=== PATIENT | female | born 1960 | race African-American/Black ===

== ENCOUNTER 2016-11-23 13:43 | Emergency (ER) | payer MEDICARE ==
[~2016-11-23] VITALS: Ht 167.6 cm; Wt 50.0 kg
[~2016-11-23 13:43] MED LIST: ALBU2.5I NEB; ALBU8I INH; ATEN-102 PO; IPRA17I INH; JANU50TA9 PO; LISI-357 PO; LISI-360 PO; METH5TAB4 PO; NOVORP2 SQ
[2016-11-23 13:44] VITALS: BP 170/78; PULSE 114; RESP 20; TEMP 98.2; O2SAT 98
--- NOTE | 2016-11-23 14:38 | PD ---
HPI Chief Complaint: Chest Pain Time Seen by Provider: 14:37 Travel History International Travel<30 days: No Contact w/Intl Traveler<30days: No Traveled to known affect area: No History of Present Illness HPI 56-year-old female with a history of hypertension, hyperthyroidism, diabetes, asthma, COPD presents to the emergency department for evaluation of cough and shortness of breath. The patient states that for the past 2 weeks she has had a productive cough that is worse at night. States that at night she feels a pressure in her chest. States that the symptoms are improved with nebulizer treatments. States that she is almost out of her nebulizers so she has not been using them very frequently. She states that she is also concerned that her thyroid may be acting up again because she is complaining of palpitations and weight loss. She is not on any medications because she does not follow up with a primary care provider. She continues to smoke cigarettes. Denies fever , chills, vomiting, chest pain, abdominal pain, lightheadedness or dizziness. No other complaints. PFSH Past Medical History Hx Anticoagulant Therapy: Yes (ASPIRIN 81 MG ) Arthritis: Yes (RA) Asthma: Yes Atrial Fibrillation: Yes Autoimmune Disease: No Blood Disorders: No Anxiety: No Depression: Yes Heart Rhythm Problems: No Cancer: No Cardiac Catheterization: Yes (2004) Cardiovascular Problems: Yes (CHF) High Cholesterol: Yes Chemotherapy: No Chest Pain: Yes Congestive Heart Failure: Yes COPD: Yes Cerebrovascular Accident: No Coronary Artery Disease: Yes Diabetes: Yes Diminished Hearing: No Endocrine: Yes (HYPERTHYROID) Gastrointestinal Disorders: Yes GERD: Yes Glaucoma: No Genitourinary: No Headaches: No Hepatitis: No Hiatal Hernia: No Hypertension: Yes Immune Disorder: No Implanted Vascular Access Dvce: No Kidney Stones: No Musculoskeletal: No Neurologic: No Psychiatric: Yes Reproductive: No Respiratory: Yes (ASTHMA) Immunizations Current: No Migraines: No Myocardial Infarction: Yes (1999) Pancreatitis: Yes Renal Failure: No Seizures: No Sickle Cell Disease: No Sleep Apnea: No Thyroid Disease: Yes (HYPERTHYROIDISM ) Ulcer: No PNEUMOCCOCAL Vaccine (Year): 1 Menopausal: Yes : 0 Past Surgical History Abdominal Surgery: Yes Appendectomy: No Cardiac Surgery: Yes (CARDIAC CATHETERIZATION X2) Cholecystectomy: No Ear Surgery: No Endocrine Surgery: No Eye Surgery: No Genitourinary Surgery: No Gynecologic Surgery: No Hysterectomy: No Neurologic Surgery: No Oral Surgery: Yes (UPPER FULL DENTURES) Pacemaker: No Thoracic Surgery: No Social History Alcohol Use: Yes (OCCASIONAL) Tobacco Use: Yes (1/2 PPD) Substance Use: No Allergies-Medications (Allergen,Severity, Reaction): Coded Allergies: Morphine (Verified Allergy, Severe, ANAPHYLAXIS, 11/23/16) Reported Meds & Prescriptions Reported Meds & Active Scripts Active Ventolin Hfa 18 GM Inh (Albuterol Sulfate) 90 Mcg/Act Aer 2 Puff INH Q4-6H PRN Zithromax Z-Blaine (Azithromycin) 250 Mg Dspk 250 Mg PO DIRECTED 500 MG (2 tabs) day 1, then 1 tab days 2-5. Reported Lisinopril 5 Mg Tab 5 Mg PO DAILY Review of Systems Except as stated in HPI: all other systems reviewed are Neg Physical Exam Narrative GENERAL: Well-nourished and well-developed pleasant patient in no acute distress who is nontoxic appearing. SKIN: Warm and dry. HEAD: Normocephalic and atraumatic. EYES: No injection, drainage, or hyphema noted. PERRLA. EOMI. ENT: No nasal drainage noted. Oropharynx is clear. NECK: Supple and the trachea is midline. CARDIOVASCULAR: Regular rate and rhythm. RESPIRATORY: Rhonchi at bases. Breath sounds are equal bilaterally with no accessory muscle use, wheezing, or crackles. GASTROINTESTINAL: Abdomen is soft, non-tender, and nondistended. MUSCULOSKELETAL: No obvious deformities, swelling, cyanosis, or ecchymosis is present throughout the upper and lower extremities. Patient has full range of motion without any signs of neurovascular compromise. NEUROLOGICAL: Awake, alert, and oriented. Normal speech and gait. Cranial nerves are grossly intact. Data Data Last Documented VS Vital Signs Date Time Temp Pulse Resp B/P Pulse Ox O2 Delivery O2 Flow Rate FiO2 11/23/16 13:44 98.2 114 20 170/78 98 Room Air Orders Electrocardiogram (11/23/16 ) Complete Blood Count With Diff (11/23/16 14:36) Comprehensive Metabolic Panel (11/23/16 14:36) Troponin I (11/23/16 14:36) Chest, Single Ap (11/23/16 14:36) Albuterol-Ipratropium Neb (Duoneb Neb) (11/23/16 14:45) Prednisone (Deltasone) (11/23/16 14:45) Thyroid Stimulating Hormone (11/23/16 14:36) Sodium Chlor 0.9% 1000 Ml Inj (Ns 1000 M (11/23/16 16:22) Sodium Chlor 0.9% 1000 Ml Inj (Ns 1000 M (11/23/16 16:22) Iv Access Insert/Monitor (11/23/16 16:22) Insulin Human Regular Inj (Novolin R Inj (11/23/16 16:45) Labs Laboratory Tests Test 11/23/16 14:46 White Blood Count 5.4 TH/MM3 Red Blood Count 4.70 MIL/MM3 Hemoglobin 15.1 GM/DL Hematocrit 42.7 % Mean Corpuscular Volume 90.8 FL Mean Corpuscular Hemoglobin 32.1 PG Mean Corpuscular Hemoglobin 35.3 % Concent Red Cell Distribution Width 14.0 % Platelet Count 232 TH/MM3 Mean Platelet Volume 9.9 FL Neutrophils (%) (Auto) 56.2 % Lymphocytes (%) (Auto) 33.8 % Monocytes (%) (Auto) 8.4 % Eosinophils (%) (Auto) 1.0 % Basophils (%) (Auto) 0.6 % Neutrophils # (Auto) 3.0 TH/MM3 Lymphocytes # (Auto) 1.8 TH/MM3 Monocytes # (Auto) 0.4 TH/MM3 Eosinophils # (Auto) 0.1 TH/MM3 Basophils # (Auto) 0.0 TH/MM3 CBC Comment DIFF FINAL Differential Comment Sodium Level 130 MEQ/L Potassium Level 4.2 MEQ/L Chloride Level 94 MEQ/L Carbon Dioxide Level 28.9 MEQ/L Anion Gap 7 MEQ/L Blood Urea Nitrogen 10 MG/DL Creatinine 0.75 MG/DL Estimat Glomerular Filtration 97 ML/MIN Rate Random Glucose 432 MG/DL Calcium Level 9.2 MG/DL Total Bilirubin 0.5 MG/DL Aspartate Amino Transf 11 U/L (AST/SGOT) Alanine Aminotransferase 18 U/L (ALT/SGPT) Alkaline Phosphatase 153 U/L Troponin I LESS THAN 0.02 NG/ML Total Protein 8.1 GM/DL Albumin 3.8 GM/DL Thyroid Stimulating Hormone 0.209 uIU/ML 3rd Gen [facility] Medical Decision Making Medical Screen Exam Complete: Yes Emergency Medical Condition: Yes Differential Diagnosis COPD exacerbation versus bronchitis versus pneumonia versus hyperthyroidism Narrative Course 56-year-old female presents to the emergency department for evaluation of productive cough and heart palpitations. Patient is afebrile. She is slightly tachycardic with a heart rate of 114 beats per minute. Otherwise vital signs are stable. Patient appears well overall. She does have some rhonchi at the bases. DuoNeb and prednisone 40 mg orally has been administered. Labs have been drawn and sent. EKG shows sinus rhythm with no acute ST elevations or depressions. CBC is unremarkable. CMP shows hyperglycemia with a glucose of 432, sodium 130. Troponin is less than 0.02. TSH is slightly decreased at 0.209. Patient has remained stable and without complaint while here in the emergency department. She is given 2 L of fluid and 5 units of subcutaneous insulin. This brought her blood glucose to 295. Discussed the importance of compliance with medication regimens and follow-up with a PCP. Patient verbalizes understanding and agrees to follow-up as an outpatient with the primary care. I discussed the case with my attending physician Dr. Hernandez who is aware of the patients history, physical examination findings, and treatment plan. Diagnosis Primary Impression: Acute bronchitis Qualified Code: J20.9 - Acute bronchitis, unspecified organism Additional Impressions: Hyperglycemia Medical non-compliance Referrals: Primary Care Physician Patient Instructions: Acute Bronchitis (ED), Diabetic Hyperglycemia (ED), General Instructions Additional Instructions: Monitor blood sugars regularly. Take medications as prescribed with food and a full glass of water. Follow-up with your Primary Care Physician. Return to the ED for any acute worsening of symptoms. Med/Other Pt SpecificInfo: Prescription(s) given Scripts Albuterol 18 GM Inh (Ventolin Hfa 18 GM Inh)90 Mcg/Act Aer2 Puff INH Q4-6H PRN ( SHORTNESS OF BREATH) #1 INHALER Ref 0 Prov:Lobito Hernandez MD 11/23/16 Azithromycin (Zithromax Z-Blaine)250 Mg Iopc549 Mg PO DIRECTED #1 DSPK Ref 0 500 MG (2 tabs) day 1, then 1 tab days 2-5. Prov:Lobito Hernandez MD 11/23/16 Disposition: 01 DISCHARGE HOME Condition: Stable Tracy Verdugo Nov 23, 2016 14:37
[2016-11-23] MEDS ORDERED: RESP: ALBUTEROL 2.5 MG/IPRATROPIUM 0.5 MG NEB (SCH) INH ONE (14:45)
[2016-11-23] MEDS ORDERED: predniSONE 20 MG TAB PO ONE (14:45)
[2016-11-23 15:16] LABS: BASOPHIL % 0.6 % (0.0-2.0); EOSINOPHIL # 0.1 TH/MM3 (0-0.4); HEMATOCRIT 42.7 % (35.0-46.0); HEMO FLAGS DIFF FINAL; LYMPH % 33.8 % (9.0-44.0); LYMPHOCYTE # 1.8 TH/MM3 (1.0-4.8); MEAN CELL VOLUME 90.8 FL (80.0-100.0); MEAN CORPUSCULAR HEMOGLOBIN 32.1 PG (27.0-34.0); MEAN CORPUSCULAR HGB CONC 35.3 % (32.0-36.0); MONO % 8.4 % (0.0-8.0); NEUT % 56.2 % (16.0-70.0); PLATELET COUNT 232 TH/MM3 (150-450); WHITE BLOOD COUNT 5.4 TH/MM3 (4.0-11.0)
[2016-11-23 15:50] LABS: ALKALINE PHOSPHATASE 153 U/L (45-117); ALT (GPT) 18 U/L (10-53); ANION GAP 7 MEQ/L (5-15); AST (GOT) 11 U/L (15-37); BICARBONATE 28.9 MEQ/L (21.0-32.0); BLOOD UREA NITROGEN 10 MG/DL (7-18); CHLORIDE 94 MEQ/L (98-107); GLOMERULAR FILTRATION RATE 97 ML/MIN (>89); POTASSIUM 4.2 MEQ/L (3.5-5.1); SODIUM (NA) 130 MEQ/L (136-145); TOTAL BILIRUBIN ADULT 0.5 MG/DL (0.2-1.0)
--- NOTE | 2016-11-23 15:52 | RADRPT ---
EXAM DATE/TIME: 11/23/2016 14:53 [facility] COMPARISON: CHEST SINGLE AP, July 27, 2013, 18:35. CHEST SINGLE AP, December 15, 2015, 16:38. INDICATIONS : Cough. MEDICAL HISTORY : Chronic obstructive pulmonary disease. Asthma SURGICAL HISTORY : None. ENCOUNTER: Initial ACUITY: 1 day PAIN SCORE: 4/10 LOCATION: Bilateral chest FINDINGS: Left hilar prominence is stable over several years. The heart is stable. The pulmonary vascular pat tern is normal. The lungs are clear. CONCLUSION: 1. Stable left hilar prominence. 2. No acute focal pulmonary infiltrate or pulmonary vascular congestion. Russell Holbrook MD on November 23, 2016 at 15:42 Board Certified Radiologist. This report was verified electronically.
[2016-11-23] MEDS ORDERED: SODIUM CHLOR 0.9% 1000 ML INJ 1,000 ML IV SCH ×2 (16:22)
[2016-11-23] MEDS ORDERED: INSULIN HUMAN REGULAR 1,000 UNITS/10 ML VIAL SQ ONE (16:45)
[2016-11-23] MEDS ORDERED: LISI-519 PO (16:56)
[2016-11-23] MEDS ORDERED: ZITHTAB PO (17:00)
[2016-11-23] MEDS ORDERED: VENTAER INH (17:00)
--- NOTE | 2016-11-24 17:34 | EKG ---
Date Performed: 11/23/2016 Time Performed: 14:03:22 PTAGE: 56 years EKG: Sinus rhythm POSSIBLE LEFT ATRIAL ENLARGEMENT POSSIBLE RIGHT VENTRICULAR CONDUCTION DELAY Since previous tracing, no significant change noted BORDERLINE ECG PREVIOUS TRACING : 03/28/2016 13.32 DOCTOR: David Lanza Interpretating Date/Time 11/24/2016 17:32:53
== END 2016-11-23 23:47 | disposition home or self-care (01) ==
LOC: NETRI 13:43
DX: J20.9 Acute bronchitis, unspecified (principal); E11.65 Type 2 diabetes mellitus with hyperglycemia; R00.2 Palpitations; R00.0 Tachycardia, unspecified; F17.210 Nicotine dependence, cigarettes, uncomplicated; E05.90 Thyrotoxicosis, unspecified without thyrotoxic crisis or storm; E78.00 Pure hypercholesterolemia, unspecified; F32.9 Major depressive disorder, single episode, unspecified; I48.91 Unspecified atrial fibrillation; M06.9 Rheumatoid arthritis, unspecified; Z79.82 Long term (current) use of aspirin; Z91.14 Patient's other noncompliance with medication regimen
CPT/HCPCS: 71010; 80053; 84443; 84484; 85025; 93005; 94664; 96372; 99285; J1815; J7030; J7512

== ENCOUNTER 2017-06-21 21:11 | Emergency (ER) | payer MEDICARE ==
[~2017-06-21] VITALS: Ht 170.2 cm; Wt 50.0 kg
[~2017-06-21 21:11] MED LIST changes: -ALBU2.5I NEB; -ALBU8I INH; -ATEN-102 PO; -IPRA17I INH; -JANU50TA9 PO; -LISI-357 PO; -LISI-360 PO; +LISI-519 PO; -METH5TAB4 PO; -NOVORP2 SQ; +VENTAER INH; +ZITHTAB PO
[2017-06-21 21:22] VITALS: BP 118/74; PULSE 101; RESP 18; TEMP 98.1; O2SAT 100
[2017-06-21] MEDS ORDERED: ONDANSETRON HCL 4 MG/2 ML VIAL IVP ONE (21:30)
[2017-06-21] MEDS: RESP: ALBUTEROL 2.5 MG/IPRATROPIUM 0.5 MG NEB (SCH) INH (21:41)
[2017-06-21 21:45] VITALS: O2SAT 99
--- NOTE | 2017-06-21 21:51 | PD ---
HPI Chief Complaint: Respiratory Symptoms Time Seen by Provider: 21:29 Travel History International Travel<30 days: No Contact w/Intl Traveler<30days: No Traveled to known affect area: No History of Present Illness HPI 57-year-old female arrives via EMS with complaint of shortness of breath and chest tightness that started last night. Patient has history of asthma that she is normally able to control with her inhaler nebulizer at home. Patient has used her inhaler and nebulizer multiple times today but this evening seemed no relief and decided to call EMS. Patient received 125 mg IV Solu-Medrol and a nebulizer treatment and 0.3 mg subcutaneous epi during transport to the hospital. Patient is still currently smoking half pack cigarettes a day but trying to quit. Patient is alert and oriented 4. She denies chest pain but complains of chest tightness. Patient complains of nausea, but denies any diarrhea. Patient denies any dizziness, lightheadedness, weakness. PFSH Past Medical History Hx Anticoagulant Therapy: Yes (ASPIRIN 81 MG ) Arthritis: Yes (RA) Asthma: Yes Atrial Fibrillation: Yes Autoimmune Disease: No Blood Disorders: No Anxiety: No Depression: Yes Heart Rhythm Problems: No Cancer: No Cardiac Catheterization: Yes (2004) Cardiovascular Problems: Yes (CHF) High Cholesterol: Yes Chemotherapy: No Chest Pain: Yes Congestive Heart Failure: Yes COPD: Yes Cerebrovascular Accident: No Coronary Artery Disease: Yes Diabetes: Yes Diminished Hearing: No Endocrine: Yes (HYPERTHYROID) Gastrointestinal Disorders: Yes GERD: Yes Glaucoma: No Genitourinary: No Headaches: No Hepatitis: No Hiatal Hernia: No Hypertension: Yes Immune Disorder: No Implanted Vascular Access Dvce: No Kidney Stones: No Musculoskeletal: No Neurologic: No Psychiatric: Yes Reproductive: No Respiratory: Yes (ASTHMA) Immunizations Current: No Migraines: No Myocardial Infarction: Yes (1999) Pancreatitis: Yes Renal Failure: No Seizures: No Sickle Cell Disease: No Sleep Apnea: No Thyroid Disease: Yes (HYPERTHYROIDISM ) Ulcer: No PNEUMOCCOCAL Vaccine (Year): 1 Menopausal: Yes : 0 Past Surgical History Abdominal Surgery: Yes Appendectomy: No Cardiac Surgery: Yes (CARDIAC CATHETERIZATION X2) Cholecystectomy: No Ear Surgery: No Endocrine Surgery: No Eye Surgery: No Genitourinary Surgery: No Gynecologic Surgery: No Hysterectomy: No Neurologic Surgery: No Oral Surgery: Yes (UPPER FULL DENTURES) Pacemaker: No Thoracic Surgery: No Social History Alcohol Use: Yes (OCCASIONAL) Tobacco Use: Yes (1/2 PPD) Substance Use: No Allergies-Medications (Allergen,Severity, Reaction): Coded Allergies: morphine (Unverified Allergy, Severe, ANAPHYLAXIS, 06/21/17) Reported Meds & Prescriptions Reported Meds & Active Scripts Active Ventolin Hfa 18 GM Inh (Albuterol Sulfate) 90 Mcg/Act Aer 2 Puff INH Q4-6H PRN Reported Novolin R Relion (Insulin Regular (Human)) 100 Unit/Ml Inj Lisinopril 5 Mg Tab 5 Mg PO DAILY Review of Systems Except as stated in HPI: all other systems reviewed are Neg Physical Exam Narrative GENERAL: Well nourished well developed 57-year-old female complaining of shortness of breath that started last night SKIN: Focused skin assessment warm/dry. HEAD: Atraumatic. Normocephalic. EYES: Pupils equal and round. No scleral icterus. No injection or drainage. ENT: No nasal bleeding or discharge. Mucous membranes pink and moist. NECK: Trachea midline. No JVD. CARDIOVASCULAR: Regular rate and rhythm. No murmur appreciated. RESPIRATORY: Accessory muscle use noted. Lung sounds extremely diminished. GASTROINTESTINAL: Abdomen soft, non-tender, nondistended. Hepatic and splenic margins not palpable. MUSCULOSKELETAL: No obvious deformities. No clubbing. No cyanosis. No edema. NEUROLOGICAL: Awake and alert. No obvious cranial nerve deficits. Motor grossly within normal limits. Normal speech. PSYCHIATRIC: Appropriate mood and affect; insight and judgment normal. Data Data Last Documented VS Vital Signs Date Time Temp Pulse Resp B/P (MAP) Pulse Ox O2 Delivery O2 Flow Rate FiO2 06/21/17 22:00 25 97 Room Air 2.00 06/21/17 21:27 88 06/21/17 21:22 98.1 118/74 (89) Orders Orders Electrocardiogram (06/21/17 21:26) Basic Metabolic Panel (Bmp) (06/21/17 21:26) Complete Blood Count With Diff (06/21/17 21:26) Chest, Single Ap (06/21/17 21:26) Ecg Monitoring (06/21/17 21:26) Iv Access Insert/Monitor (06/21/17 21:26) Oximetry (06/21/17 21:26) Oxygen Administration (06/21/17 21:26) Ondansetron Inj (Zofran Inj) (06/21/17 21:30) Albuterol-Ipratropium Neb (Duoneb Neb) (06/21/17 21:30) Creatine Kinase (Cpk) (06/21/17 21:30) Troponin I (06/21/17 21:30) Blood Gas Venous (Vbg) (06/21/17 22:24) Beta Hydroxybutyrate (Acetone) (06/21/17 22:24) Sodium Chlor 0.9% 1000 Ml Inj (Ns 1000 M (06/21/17 22:30) Insulin Human Regular Inj (Novolin R Inj (06/21/17 22:30) Labs Laboratory Tests Test 06/21/17 21:30 06/21/17 22:40 White Blood Count 9.1 TH/MM3 Red Blood Count 4.54 MIL/MM3 Hemoglobin 14.6 GM/DL Hematocrit 42.0 % Mean Corpuscular Volume 92.6 FL Mean Corpuscular Hemoglobin 32.1 PG Mean Corpuscular Hemoglobin Concent 34.7 % Red Cell Distribution Width 13.3 % Platelet Count 235 TH/MM3 Mean Platelet Volume 9.7 FL Neutrophils (%) (Auto) 58.6 % Lymphocytes (%) (Auto) 30.6 % Monocytes (%) (Auto) 10.1 % Eosinophils (%) (Auto) 0.3 % Basophils (%) (Auto) 0.4 % Neutrophils # (Auto) 5.3 TH/MM3 Lymphocytes # (Auto) 2.8 TH/MM3 Monocytes # (Auto) 0.9 TH/MM3 Eosinophils # (Auto) 0.0 TH/MM3 Basophils # (Auto) 0.0 TH/MM3 CBC Comment DIFF FINAL Differential Comment Blood Urea Nitrogen 18 MG/DL Creatinine 1.12 MG/DL Random Glucose 634 MG/DL Calcium Level 9.5 MG/DL Sodium Level 127 MEQ/L Potassium Level 3.6 MEQ/L Chloride Level 86 MEQ/L Carbon Dioxide Level 25.9 MEQ/L Anion Gap 15 MEQ/L Estimat Glomerular Filtration Rate 61 ML/MIN Blood Gas Puncture Site IV Blood Gas Patient Temperature 98.6 Venous Blood pH 7.33 Venous Blood Partial Pressure CO2 51 mmHg Venous Blood Partial Pressure O2 37 mmHg Venous Blood HCO3 26 mmol/L Venous Blood Oxygen Saturation 62 % Venous Blood Oxygen Content 12.3 Vol % Venous Blood Base Excess 0.9 mmol/L Oxygen Delivery Device NASAL CANNULA Blood Gas Liter Flow 2 L/M MDM Medical Decision Making Medical Screen Exam Complete: Yes Emergency Medical Condition: Yes Medical Record Reviewed: Yes Differential Diagnosis Asthma exacerbation versus COPD versus pneumonia versus URI versus ACS Narrative Course 57-year-old female presents to the emergency department with complaint of shortness of breath that started last night. She does have a history of asthma and used her nebulizer and inhaler throughout the night last night and day today without adequate relief. She decided to call EMS this evening. She was given 125 mg IV Solu-Medrol and a breathing treatment during transport to the hospital. She is still currently complaining of shortness of breath and chest tightness. EKG, BMP, CBC, chest x-ray ordered and pending. DuoNeb nebs 2 ordered and 4 mg IV Zofran ordered Chemistry came back with elevated glucose at 634. 1 L normal saline IV bolus and 10 units IV insulin ordered. VBG and beta hydroxybutyrate ordered and pending. EKG SINUS RHYTHM WITH SINUS ARRHYTHMIA, HEART RATE 85, CBC: UNREMARKABLE, BMP shows critically high glucose at 634, NA 127, CHLORIDE 86, CREATININE 1.12, GFR 61 ,, CHEST X-RAY: shows no acute disease process Troponin and CK and VBG and beta hydroxybutyrate still pending. Dr. Duron is assuming care and disposition of patient. Mariela Rebollar Jun 21, 2017 21:51
[2017-06-21 21:59] LABS: AUTOMATED NEUTROPHIL # 5.3 TH/MM3 (1.8-7.7); BASOPHIL % 0.4 % (0.0-2.0); EOSINOPHIL % 0.3 % (0.0-4.0); HEMO FLAGS DIFF FINAL; LYMPH % 30.6 % (9.0-44.0); LYMPHOCYTE # 2.8 TH/MM3 (1.0-4.8); MEAN CELL VOLUME 92.6 FL (80.0-100.0); MEAN CORPUSCULAR HEMOGLOBIN 32.1 PG (27.0-34.0); MEAN CORPUSCULAR HGB CONC 34.7 % (32.0-36.0); MONO % 10.1 % (0.0-8.0); NEUT % 58.6 % (16.0-70.0); PLATELET COUNT 235 TH/MM3 (150-450); RED BLOOD COUNT 4.54 MIL/MM3 (4.00-5.30); RED CELL DISTRIBUTION WIDTH 13.3 % (11.6-17.2); WHITE BLOOD COUNT 9.1 TH/MM3 (4.0-11.0)
[2017-06-21] MEDS ORDERED: INSUINJ3 (21:59)
[2017-06-21 22:00] VITALS: RESP 25; O2SAT 97
--- NOTE | 2017-06-21 22:08 | RADRPT ---
EXAM DATE/TIME: 06/21/2017 21:56 [facility] COMPARISON: CHEST SINGLE AP, December 03, 2013, 21:28. CHEST SINGLE AP, November 23, 2016, 14:53. INDICATIONS : Short of Breath MEDICAL HISTORY : Chronic obstructive pulmonary disease. Asthma SURGICAL HISTORY : None. ENCOUNTER: Initial ACUITY: 1 day PAIN SCORE: 0/10 LOCATION: Bilateral chest FINDINGS: A single view of the chest demonstrates the lungs to be symmetrically aerated without evidence of mas s, infiltrate or effusion. There is stable abnormal prominence of the left hilar region. The cardiome diastinal contours are unremarkable. Osseous structures are intact. CONCLUSION: No acute disease. Toni Connelly MD on June 21, 2017 at 22:05 Board Certified Radiologist. This report was verified electronically.
[2017-06-21 22:14] LABS: ANION GAP 15 MEQ/L (5-15); BICARBONATE 25.9 MEQ/L (21.0-32.0); BLOOD UREA NITROGEN 18 MG/DL (7-18); CHLORIDE 86 MEQ/L (98-107); GLOMERULAR FILTRATION RATE 61 ML/MIN (>89); POTASSIUM 3.6 MEQ/L (3.5-5.1); SODIUM (NA) 127 MEQ/L (136-145)
[2017-06-21] MEDS ORDERED: INSULIN HUMAN REGULAR 1,000 UNITS/10 ML VIAL IV PUSH ONE ×2 (22:30→23:30)
[2017-06-21] MEDS ORDERED: SODIUM CHLOR 0.9% 1000 ML INJ 1,000 ML IV ONE (22:30)
[2017-06-21 22:53] LABS: BLOOD GAS VENOUS BASE EXCESS 0.9 mmol/L (-2-2); BLOOD GAS VENOUS HCO3 26 mmol/L (22-26); BLOOD GAS VENOUS O2 CONTENT 12.3 Vol % (9.0-17.0); BLOOD GAS VENOUS O2 HGB SAT 62 % (70-76); BLOOD GAS VENOUS PCO2 51 mmHg (44-48); BLOOD GAS VENOUS PO2 37 mmHg (35-40); BLOOD GAS VENOUS pH 7.33 (7.360-7.400); TEMP CORR TO 98.6
[2017-06-21 22:54] LABS: CRITICAL VALUE NO; DRAW SITE IV; LITER FLOW 2 L/M; OXYGEN DEVICE NASAL CANNULA; STAT YES
[2017-06-21 23:07] LABS: CREATINE KINASE 29 U/L (26-192)
[2017-06-21 23:17] VITALS: BP 120/63; PULSE 93; RESP 21; O2SAT 99
--- NOTE | 2017-06-22 00:52 | PD ---
Data Data Last Documented VS Vital Signs Date Time Temp Pulse Resp B/P (MAP) Pulse Ox O2 Delivery O2 Flow Rate FiO2 06/21/17 23:17 93 21 120/63 (82) 99 Room Air 06/21/17 22:00 2.00 06/21/17 21:22 98.1 Orders Orders Electrocardiogram (06/21/17 21:26) Basic Metabolic Panel (Bmp) (06/21/17 21:26) Complete Blood Count With Diff (06/21/17 21:26) Chest, Single Ap (06/21/17 21:26) Ecg Monitoring (06/21/17 21:26) Iv Access Insert/Monitor (06/21/17 21:26) Oximetry (06/21/17 21:26) Oxygen Administration (06/21/17 21:26) Ondansetron Inj (Zofran Inj) (06/21/17 21:30) Albuterol-Ipratropium Neb (Duoneb Neb) (06/21/17 21:30) Creatine Kinase (Cpk) (06/21/17 21:30) Troponin I (06/21/17 21:30) Blood Gas Venous (Vbg) (06/21/17 22:24) Beta Hydroxybutyrate (Acetone) (06/21/17 22:24) Sodium Chlor 0.9% 1000 Ml Inj (Ns 1000 M (06/21/17 22:30) Insulin Human Regular Inj (Novolin R Inj (06/21/17 22:30) Insulin Human Regular Inj (Novolin R Inj (06/21/17 23:30) Labs Laboratory Tests Test 06/21/17 21:30 06/21/17 22:40 White Blood Count 9.1 TH/MM3 Red Blood Count 4.54 MIL/MM3 Hemoglobin 14.6 GM/DL Hematocrit 42.0 % Mean Corpuscular Volume 92.6 FL Mean Corpuscular Hemoglobin 32.1 PG Mean Corpuscular Hemoglobin Concent 34.7 % Red Cell Distribution Width 13.3 % Platelet Count 235 TH/MM3 Mean Platelet Volume 9.7 FL Neutrophils (%) (Auto) 58.6 % Lymphocytes (%) (Auto) 30.6 % Monocytes (%) (Auto) 10.1 % Eosinophils (%) (Auto) 0.3 % Basophils (%) (Auto) 0.4 % Neutrophils # (Auto) 5.3 TH/MM3 Lymphocytes # (Auto) 2.8 TH/MM3 Monocytes # (Auto) 0.9 TH/MM3 Eosinophils # (Auto) 0.0 TH/MM3 Basophils # (Auto) 0.0 TH/MM3 CBC Comment DIFF FINAL Differential Comment Blood Urea Nitrogen 18 MG/DL Creatinine 1.12 MG/DL Random Glucose 634 MG/DL Calcium Level 9.5 MG/DL Sodium Level 127 MEQ/L Potassium Level 3.6 MEQ/L Chloride Level 86 MEQ/L Carbon Dioxide Level 25.9 MEQ/L Anion Gap 15 MEQ/L Estimat Glomerular Filtration Rate 61 ML/MIN Total Creatine Kinase 29 U/L Troponin I LESS THAN 0.02 NG/ML B-Hydroxybutyrate 0.70 MMOL/L Blood Gas Puncture Site IV Blood Gas Patient Temperature 98.6 Venous Blood pH 7.33 Venous Blood Partial Pressure CO2 51 mmHg Venous Blood Partial Pressure O2 37 mmHg Venous Blood HCO3 26 mmol/L Venous Blood Oxygen Saturation 62 % Venous Blood Oxygen Content 12.3 Vol % Venous Blood Base Excess 0.9 mmol/L Oxygen Delivery Device NASAL CANNULA Blood Gas Liter Flow 2 L/M MDM Supervised Visit with EUGENIA: Yes Narrative Course I, Dr. Duron, have reviewed the advance practice practitioner's documentation and am in agreement, met with the patient face to face, made the diagnosis, and the medical decision making was done by me. See her note for further details. Briefly this is a 57-year-old female with history of asthma and diabetes who was brought in by ambulance for evaluation of shortness of breath. She was given albuterol and IV site medical by EMS. While in route she complained of her throat feeling as though it was closing. They also gave her an IM dose of 0.3 mg of epinephrine. Upon arrival to the emergency department the patient reported feeling improved. Chest x-ray shows no acute disease. EKG shows no signs of ischemia. Cardiac enzymes are negative. Chemistry was remarkable for a glucose of 634. Venous pH is 7.33 with a PCO2 of 50. Beta hydroxybutyrate is 0.70. Patient is not in DKA. She admits to not using her insulin because she does not like giving herself injections. She was given a liter normal saline IV and 10 units of IV insulin 2 with improvement in blood sugar to 278. She was observed in the emergency department for 3 hours and is resting comfortably. Lung sounds are clear. No drooling or stridor on exam. She is stable for discharge home with outpatient follow-up with a primary care physician this week. She was informed on when to return to the emergency department. She verbalizes understanding and agreement with plan. Diagnosis Primary Impression: Asthma exacerbation Additional Impression: Hyperglycemia Referrals: [facility] 3 days Additional Instruction: Follow-up with a primary care physician this week. Return to the emergency department for worsening symptoms or any other concerns. Disposition: 01 DISCHARGE HOME Condition: Stable Axel Duron MD Jun 22, 2017 00:52
[2017-06-22 01:01] VITALS: BP 110/62
--- NOTE | 2017-06-22 14:07 | EKG ---
Date Performed: 06/21/2017 Time Performed: 21:30:18 PTAGE: 57 years EKG: Sinus rhythm WITH SINUS ARRHYTHMIA POSSIBLE LEFT ATRIAL ENLARGEMENT MODERATE T-WAVE ABNORMALITY, CONSIDER ANTERIO R ISCHEMIA ABNORMAL ECG PREVIOUS TRACING : 11/23/[address]03 [address]-T changes are more prominent since the prior tracing. Cl inical correlation recommended. DOCTOR: Troy Le Interpretating Date/Time 06/22/2017 14:05:48
== END 2017-06-22 01:14 | disposition home or self-care (01) ==
LOC: NEPE 21:11
DX: J45.901 Unspecified asthma with (acute) exacerbation (principal); E11.65 Type 2 diabetes mellitus with hyperglycemia; F17.210 Nicotine dependence, cigarettes, uncomplicated; Z79.4 Long term (current) use of insulin
CPT/HCPCS: 71010; 80048; 82010; 82550; 82805; 84484; 85025; 93005; 94640; 94664; 96361; 96374; 96376; 99285; J1815; J7030

== ENCOUNTER 2017-08-19 10:34 | Inpatient (IN) | payer MEDICARE, MEDICAID ==
[2017-08-19] VITALS (8 sets, daily range): BP systolic 116–176; BP diastolic 66–81; PULSE 101–116; RESP 12–24; TEMP 98–99.3; O2SAT 92–100
[~2017-08-19] VITALS: Ht 167.6 cm; Wt 45.0 kg
[~2017-08-19 10:34] MED LIST changes: +INSUINJ3; -ZITHTAB PO
--- NOTE | 2017-08-19 10:59 | PD ---
HPI Chief Complaint: Flank/Kidney Pain Time Seen by Provider: 10:45 Travel History International Travel<30 days: No Contact w/Intl Traveler<30days: No Traveled to known affect area: No History of Present Illness HPI 57-year-old female complains of right flank pain. Patient states that the pain started yesterday. Patient states the pain in cramping pain and sharp pain localized the right flank area. Patient denies any pain radiation. Patient denies any recent injury. Patient denies any dysuria. Patient states that she had urinary frequency. Patient has history of diabetes and states her blood sugar has been high. Patient denies any headache. Patient denies any chest pain or shortness of breath. Patient denies abdominal pain. Patient denies any nausea vomiting diarrhea. Patient denies any vaginal discharge or bleeding. PFSH Past Medical History Hx Anticoagulant Therapy: Yes (ASPIRIN 81 MG ) Arthritis: Yes (RA) Asthma: Yes Atrial Fibrillation: Yes Autoimmune Disease: No Blood Disorders: No Anxiety: No Depression: Yes Heart Rhythm Problems: No Cancer: No Cardiac Catheterization: Yes (2004) Cardiovascular Problems: Yes (CHF) High Cholesterol: Yes Chemotherapy: No Chest Pain: Yes Congestive Heart Failure: Yes COPD: Yes Cerebrovascular Accident: No Coronary Artery Disease: Yes Diabetes: Yes Patient Takes Glucophage: No Diminished Hearing: No Endocrine: Yes (HYPERTHYROID) Gastrointestinal Disorders: Yes GERD: Yes Glaucoma: No Genitourinary: No Headaches: No Hepatitis: No Hiatal Hernia: No Heparin Induced Thrombocytopen: No Hypertension: Yes Immune Disorder: No Implanted Vascular Access Dvce: No Kidney Stones: No Medical other: Yes (RA, GERD) Musculoskeletal: No Neurologic: No Psychiatric: Yes Reproductive: No Respiratory: Yes (ASTHMA) Immunizations Current: No Migraines: No Myocardial Infarction: Yes (1999) Pancreatitis: Yes Renal Failure: No Seizures: No Sickle Cell Disease: No Sleep Apnea: No Thyroid Disease: Yes (HYPERTHYROIDISM ) Ulcer: No Tetanus Vaccination: Unknown Influenza Vaccination: No PNEUMOCCOCAL Vaccine (Year): 1 ?: Not Menopausal: Yes : 0 Past Surgical History Abdominal Surgery: Yes Appendectomy: No Cardiac Surgery: Yes (CARDIAC CATHETERIZATION X2) Cholecystectomy: No Ear Surgery: No Endocrine Surgery: No Eye Surgery: No Genitourinary Surgery: No Gynecologic Surgery: No Hysterectomy: No Neurologic Surgery: No Oral Surgery: Yes (UPPER FULL DENTURES) Pacemaker: No Thoracic Surgery: No Social History Alcohol Use: Yes (OCCASIONAL) Tobacco Use: Yes (1/2 PPD) Substance Use: No Allergies-Medications (Allergen,Severity, Reaction): Coded Allergies: morphine (Unverified Allergy, Severe, ANAPHYLAXIS, 08/19/17) Reported Meds & Prescriptions Reported Meds & Active Scripts Active Ventolin Hfa 18 GM Inh (Albuterol Sulfate) 90 Mcg/Act Aer 2 Puff INH Q4-6H PRN Reported Novolin R Relion (Insulin Regular (Human)) 100 Unit/Ml Inj Lisinopril 5 Mg Tab 5 Mg PO DAILY Review of Systems General / Constitutional: No: Fever Eyes: No: Visual changes HENT: No: Headaches Cardiovascular: No: Chest Pain or Discomfort Respiratory: No: Shortness of Breath Gastrointestinal: No: Abdominal Pain Genitourinary: No: Dysuria Musculoskeletal: No: Pain Skin: No Rash Neurologic: No: Weakness Psychiatric: No: Depression Endocrine: No: Polydipsia Hematologic/Lymphatic: No: Easy Bruising Physical Exam Narrative GENERAL: Well-nourished, well-developed patient. SKIN: Focused skin assessment warm/dry. HEAD: Normocephalic. EYES: No scleral icterus. No injection or drainage. NECK: Supple, trachea midline. No JVD or lymphadenopathy. CARDIOVASCULAR: Regular rate and rhythm without murmurs, gallops, or rubs. RESPIRATORY: Breath sounds equal bilaterally. No accessory muscle use. GASTROINTESTINAL: Abdomen soft, non-tender, nondistended. MUSCULOSKELETAL: No cyanosis, or edema. BACK: Patient has moderate tenderness and palpation right flank area. No rash noted. Neurologic exam normal. Data Data Last Documented VS Vital Signs Date Time Temp Pulse Resp B/P (MAP) Pulse Ox O2 Delivery O2 Flow Rate FiO2 08/19/17 10:35 98.0 114 16 117/72 (87) 97 Orders Orders Complete Blood Count With Diff (08/19/17 10:51) Comprehensive Metabolic Panel (08/19/17 10:51) Urinalysis - C+S If Indicated (08/19/17 10:51) Beta Hydroxybutyrate (Acetone) (08/19/17 10:51) Ct Abd/Pel W/O Iv Contrast (08/19/17 10:51) Iv Access Insert/Monitor (08/19/17 10:51) Urine Culture (08/19/17 11:10) Ceftriaxone Inj (Rocephin Inj) (08/19/17 12:15) Sodium Chlor 0.9% 1000 Ml Inj (Ns 1000 M (08/19/17 12:45) Insulin Human Regular Inj (Novolin R Inj (08/19/17 13:00) Electrocardiogram (08/19/17 ) Sodium Chlor 0.9% 1000 Ml Inj (Ns 1000 M (08/19/17 13:01) Insulin Regular (Iv Infusion) (Novolin R (08/19/17 13:15) Hemoglobin (Hgb) A1c (08/19/17 13:01) Basic Metabolic Panel (Bmp) (08/19/17 18:01) Basic Metabolic Panel (Bmp) (08/20/17 00:01) Basic Metabolic Panel (Bmp) (08/20/17 06:01) Basic Metabolic Panel (Bmp) (08/20/17 12:01) Magnesium (Mg) (08/19/17 18:01) Magnesium (Mg) (08/20/17 00:01) Magnesium (Mg) (08/20/17 06:01) Magnesium (Mg) (08/20/17 12:01) Phosphorus (Po4) (08/19/17 18:01) Phosphorus (Po4) (08/20/17 00:01) Phosphorus (Po4) (08/20/17 06:01) Phosphorus (Po4) (08/20/17 12:01) Beta Hydroxybutyrate (Acetone) (08/20/17 00:01) Beta Hydroxybutyrate (Acetone) (08/20/17 12:01) Blood Gas Venous (Vbg) (08/19/17 13:01) Labs Laboratory Tests Test 08/19/17 11:00 08/19/17 11:10 White Blood Count 16.4 TH/MM3 Red Blood Count 4.75 MIL/MM3 Hemoglobin 15.1 GM/DL Hematocrit 44.2 % Mean Corpuscular Volume 93.1 FL Mean Corpuscular Hemoglobin 31.7 PG Mean Corpuscular Hemoglobin Concent 34.1 % Red Cell Distribution Width 14.7 % Platelet Count 169 TH/MM3 Mean Platelet Volume 10.3 FL Neutrophils (%) (Auto) 89.9 % Lymphocytes (%) (Auto) 3.8 % Monocytes (%) (Auto) 6.0 % Eosinophils (%) (Auto) 0.0 % Basophils (%) (Auto) 0.3 % Neutrophils # (Auto) 14.8 TH/MM3 Lymphocytes # (Auto) 0.6 TH/MM3 Monocytes # (Auto) 1.0 TH/MM3 Eosinophils # (Auto) 0.0 TH/MM3 Basophils # (Auto) 0.1 TH/MM3 CBC Comment DIFF FINAL Differential Comment Blood Urea Nitrogen 30 MG/DL Creatinine 1.37 MG/DL Random Glucose 550 MG/DL Total Protein 8.5 GM/DL Albumin 2.9 GM/DL Calcium Level 9.8 MG/DL Alkaline Phosphatase 181 U/L Aspartate Amino Transf (AST/SGOT) 51 U/L Alanine Aminotransferase (ALT/SGPT) 47 U/L Total Bilirubin 1.5 MG/DL Sodium Level 121 MEQ/L Potassium Level 5.9 MEQ/L Chloride Level 85 MEQ/L Carbon Dioxide Level 21.3 MEQ/L Anion Gap 15 MEQ/L Estimat Glomerular Filtration Rate 48 ML/MIN B-Hydroxybutyrate 5.16 MMOL/L Urine Color YELLOW Urine Turbidity HAZY Urine pH 5.0 Urine Specific [place] 1.013 Urine Protein 30 mg/dL Urine Glucose (UA) 1000 mg/dL Urine Ketones 10 mg/dL Urine Occult Blood MOD Urine Nitrite NEG Urine Bilirubin NEG Urine Urobilinogen LESS THAN 2.0 MG/DL Urine Leukocyte Esterase MOD Urine RBC 7 /hpf Urine WBC 35 /hpf Urine WBC Clumps RARE Urine Squamous Epithelial Cells 6 /hpf Urine Bacteria MANY /hpf Urine Hyaline Casts 24 /lpf Urine Mucus FEW /lpf Microscopic Urinalysis Comment CULTURE INDICATED MDM Medical Decision Making Medical Screen Exam Complete: Yes Emergency Medical Condition: Yes Interpretation(s) [address] scan abdomen and pelvis show multiple calcified uterine fibroids. CBC WBC 16.4. 89 neutrophil. UA positive for WBC and bacteria. Positive for protein, glucose, ketone and blood. 12:52 PM. Sodium 121. Potassium 5.9. Chloride 85. Bicarbonate 21.3. BUN 30. Creatinine 1.37. Random glucose 550. Total bili 1.5. AST 51. Alkaline phosphatase 181. Total protein 8.5. Albumin 2.9. Beta hydroxybutyrate 5.16. Differential Diagnosis Differential diagnosis including musculoskeletal, nephrolithiasis, pyelonephritis, colitis, cystitis. Narrative Course 57-year-old female with right flank pain. History of diabetes. Normal saline solution 1 L IV bolus. Normal saline solution 1 25 cc an hour. Novolin R, 5 units IV given. Normal saline solution 250 cc an hour. Insulin drip started. Diagnosis Primary Impression: Hyperglycemia Additional Impressions: Pyelonephritis Hyponatremia Hyperkalemia Renal insufficiency Ochoa Perez MD Aug 19, 2017 10:59
[2017-08-19 11:45] LABS: AUTOMATED NEUTROPHIL # 14.8 TH/MM3 (1.8-7.7); BASOPHIL # 0.1 TH/MM3 (0-0.2); BASOPHIL % 0.3 % (0.0-2.0); HEMATOCRIT 44.2 % (35.0-46.0); HEMOGLOBIN 15.1 GM/DL (11.6-15.3); LYMPH % 3.8 % (9.0-44.0); LYMPHOCYTE # 0.6 TH/MM3 (1.0-4.8); MEAN CELL VOLUME 93.1 FL (80.0-100.0); MEAN CORPUSCULAR HEMOGLOBIN 31.7 PG (27.0-34.0); MEAN CORPUSCULAR HGB CONC 34.1 % (32.0-36.0); MEAN PLATELET VOLUME 10.3 FL (7.0-11.0); NEUT % 89.9 % (16.0-70.0); PLATELET COUNT 169 TH/MM3 (150-450); RED BLOOD COUNT 4.75 MIL/MM3 (4.00-5.30); RED CELL DISTRIBUTION WIDTH 14.7 % (11.6-17.2); WHITE BLOOD COUNT 16.4 TH/MM3 (4.0-11.0)
--- NOTE | 2017-08-19 12:00 | RADRPT ---
EXAM DATE/TIME: 08/19/2017 11:44 [facility] COMPARISON: No previous studies available for comparison. INDICATIONS : Right flank pain. ORAL CONTRAST: No oral contrast ingested. RADIATION DOSE: 2.95 CTDIvol (mGy) MEDICAL HISTORY : Pancreatitis. Chronic obstructive pulmonary disease. Diabetes mellitus type 2.Cardiovascular disease, hypertension. SURGICAL HISTORY : None. ENCOUNTER: Initial ACUITY: 1 day PAIN SCALE: 8/10 LOCATION: Right flank TECHNIQUE: Volumetric scanning of the abdomen and pelvis was performed. Using automated exposure control and ad justment of the mA and/or kV according to patient size, radiation dose was kept as low as reasonably achievable to obtain optimal diagnostic quality images. DICOM format image data is available electro nically for review and comparison. The lack of IV contrast limits the diagnosis for certain organ pat hology. FINDINGS: LOWER LUNGS: The visualized lower lungs are clear. LIVER: Homogeneous density without lesion. There is no dilation of the biliary tree. No gallbladder. SPLEEN: Normal size without lesion. PANCREAS: Within normal limits. KIDNEYS: Normal in size and shape. There is no mass, stone, or hydronephrosis. There is a tiny calcification associated with the left kidney which I believe is a vascular calcification. No definite kidney stone s are seen. ADRENAL GLANDS: Within normal limits. VASCULAR: There is no aortic aneurysm. BOWEL/MESENTERY: The stomach, small bowel, and colon demonstrate no acute abnormality. There is no free intraperitone al air or fluid. The appendix is unremarkable. No inflammatory changes are seen. There is stool throu ghout the colon. ABDOMINAL WALL: Within normal limits. RETROPERITONEUM: There is no lymphadenopathy. BLADDER: No wall thickening or mass. No stones. REPRODUCTIVE: The uterus is prominent and there are multiple calcifications in the uterus suggestive of calcified u terine fibroids. No definite free fluid is seen in the cul-de-sac. INGUINAL: There is no lymphadenopathy or hernia. MUSCULOSKELETAL: Within normal limits for patient age. CONCLUSION: 1. No evidence of hydronephrosis or obstruction. No definite kidney stones. There is a tiny vascular calcification associated with the left kidney. 2. Multiple calcified uterine fibroids. Vinny Burch MD on August 19, 2017 at 11:54 Board Certified Radiologist. This report was verified electronically.
[2017-08-19 12:01] LABS: BACTERIA, URINE MANY /hpf; BILIRUBIN, URINE NEG (NEG); BLOOD, URINE MOD (NEG); GLUCOSE,URINE 1000 mg/dL (NEG); HYALINE CAST, URINE 24 /lpf (RARE); KETONE, URINE 10 mg/dL (NEG); MUCUS URINE FEW /lpf (OCC); NITRITE,URINE NEG (NEG); SQUAMOUS EPITHELIAL CELL URINE 6 /hpf (0-5); URINE COLOR YELLOW (YELLW/STRAW); URINE LEUKOCYTE ESTERASE MOD (NEG); WHITE BLOOD CELL CLUMPS RARE
[2017-08-19] MEDS ORDERED: cefTRIAXone INJ 1,000 MG in SODIUM CHLORIDE 0.9% INJ 100 ML IV ONE (12:15)
[2017-08-19 12:26] LABS: ALKALINE PHOSPHATASE 181 U/L (45-117); ALT (GPT) 47 U/L (10-53); AST (GOT) 51 U/L (15-37); BICARBONATE 21.3 MEQ/L (21.0-32.0); BLOOD UREA NITROGEN 30 MG/DL (7-18); CALCIUM 9.8 MG/DL (8.5-10.1); CHLORIDE 85 MEQ/L (98-107); CREATININE 1.37 MG/DL (0.50-1.00); GLOMERULAR FILTRATION RATE 48 ML/MIN (>89); TOTAL BILIRUBIN ADULT 1.5 MG/DL (0.2-1.0); TOTAL PROTEIN 8.5 GM/DL (6.4-8.2)
[2017-08-19 12:32] LABS: GLUCOSE,RANDOM 550 MG/DL (74-106); SODIUM (NA) 121 MEQ/L (136-145)
[2017-08-19 12:33] LABS: ALBUMIN 2.9 GM/DL (3.4-5.0)
[2017-08-19] MEDS ORDERED: SODIUM CHLOR 0.9% 1000 ML INJ 1,000 ML IV ONE (12:45)
[2017-08-19] MEDS ORDERED: INSULIN HUMAN REGULAR 1,000 UNITS/10 ML VIAL IV PUSH ONE (13:00)
[2017-08-19] MEDS ORDERED: SODIUM CHLOR 0.9% 1000 ML INJ 1,000 ML IV SCH (13:01)
[2017-08-19] MEDS ORDERED: INSULIN REGULAR (IV INFUSION) 100 UNITS in SODIUM CHLORIDE 0.9% INJ 99 ML IV PRN (13:15)
[2017-08-19] MEDS ORDERED: SODIUM CHLORIDE 0.9% FLUSH 10 ML FLUSH IV FLUSH PRN (13:45)
--- NOTE | 2017-08-19 14:02 | HHI.HP ---
HPI Service Family Medicine Primary Care Physician No Primary Care Physician Admission Diagnosis hyperglycemia. Pyelonephritis. Hyponatremia. Hypokalemia Diagnoses: International Travel<30 Days: No Contact w/Intl Traveler<30days: No Known Affected Area: No History of Present Illness Mrs. Choudhary is a 57yo female with a past medical history of diabetes and hypothyroidism presenting with right flank pain. She states that she's experienced a lot of pain in her right side that started a few days ago. She has been urinating a lot, but has been drinking a lot of water for a few months. She is having dysuria and urinary urgency . She has experienced incontinence last night and few days ago. Had to put a bucket by the bed. Describes the pain as sensitive on the skin, superficial, no radiation, worse with urination and movement, better with rest and sitting still. Tried ibuprofen but didn't help. Has a lot of congestion and cough from CHF when "fluid builds up." Cough is productive of white sputum. No blood. Feels tired. Regular human insulin at home that she gets OTC. Uses a sliding scale at home. Has been needing 5 units once a day. Checks sugar once a day upon waking. Her sugars usually run in the 400s to 500s. States that she watches what she eats. Unsure of type of DM, but has only used insulin since being diagnosed. Significant weight loss of 40 lbs in 6mths. (Bessie Perez MD R1) Review of Systems Constitutional: COMPLAINS OF: Weight loss, Dizziness, Change in appetite ( decreased), Night Sweats, DENIES: Fever, Chills Endocrine: COMPLAINS OF: Heat/cold intolerance (heat), Polydipsia, Polyuria Eyes: COMPLAINS OF: Blurred vision (getting worse and dots in her vision) Ears, nose, mouth, throat: DENIES: Tinnitus, Throat pain Respiratory: COMPLAINS OF: Cough Cardiovascular: COMPLAINS OF: Palpitations, Dyspnea on Exertion, PND, Orthopnea , DENIES: Chest pain, Lower Extremity Edema Gastrointestinal: COMPLAINS OF: Diarrhea, Nausea, Vomiting, DENIES: Black stools, Bloody stools Genitourinary: COMPLAINS OF: Urinary frequency, Urinary incontinence, Urgency, Dysuria, DENIES: Hematuria Musculoskeletal: COMPLAINS OF: Joint pain (neck), DENIES: Joint Swelling Integumentary: DENIES: Rash Hematologic/lymphatic: COMPLAINS OF: Lymphadenopathy (neck), DENIES: Bruising Neurologic: DENIES: Localized weakness, Paresthesias, Seizures Psychiatric: COMPLAINS OF: Anxiety, Depression, DENIES: Suicidal Ideation, Homicidal Ideation (Bessie Perez MD R1) Past Family Social History Past Medical History Hyperthyroidism and a goiter- not taking meds DM Anxiety Depression Asthma/COPD CHF Past Surgical History Right wrist for carpel tunnel Cardiac catheterization x 2 Reported Medications Reported Meds & Active Scripts Active Ventolin Hfa 18 GM Inh (Albuterol Sulfate) 90 Mcg/Act Aer 2 Puff INH Q4-6H PRN Reported Novolin R Relion (Insulin Regular (Human)) 100 Unit/Ml Inj Lisinopril 5 Mg Tab 5 Mg PO DAILY (Bessie Perez MD R1) Allergies: Coded Allergies: morphine (Unverified Allergy, Severe, ANAPHYLAXIS, 08/19/17) Family History Father- asthma, heart problems Mother- CHF Social History From [place] Lives in an apartment in [place] by herself, niece lives in the area Unemployed, on disability for right hand unable to use 50% and heart problems Cigarettes- 1/2 ppd for 30 yrs Alcohol- occasionally, a few times a yr Illicit drugs- smoke marijuana Sexual hx: One partner of 30 yrs, does not use condoms, last had sex last week (Bessie Perez MD R1) Physical Exam Vital Signs Vital Signs Date Time Temp Pulse Resp B/P (MAP) Pulse Ox O2 Delivery O2 Flow Rate FiO2 08/19/17 10:35 98.0 114 16 117/72 (87) 97 Physical Exam GENERAL: This is a cachectic, well-developed female patient, in no apparent distress. SKIN: No rashes, ecchymoses or lesions. Cool and dry. HEAD: Atraumatic. Normocephalic. EYES: Pupils equal round and reactive. Extraocular motions intact. No scleral icterus. No injection or drainage. ENT: Nose without bleeding, purulent drainage or septal hematoma. Throat without erythema, tonsillar hypertrophy or exudate. Uvula midline. Airway patent. Enlarged thyroid NECK: Trachea midline. No JVD or lymphadenopathy. Supple, nontender. CARDIOVASCULAR: Tachycardic Regular rate and rhythm without murmurs, gallops, or rubs. RESPIRATORY: Clear to auscultation. Breath sounds equal bilaterally. No wheezes , rales, or rhonchi. GASTROINTESTINAL: Abdomen soft, non-tender, nondistended. No hepato-splenomegaly , or palpable masses. No guarding. Suprapubic tenderness : Right CVA tenderness MUSCULOSKELETAL: Extremities without clubbing, cyanosis, or edema. No joint tenderness, effusion, or edema noted. No calf tenderness. Negative Homans sign bilaterally. NEUROLOGICAL: Awake and alert. Motor and sensory grossly within normal limits. Normal speech. Laboratory Laboratory Tests Test 08/19/17 11:00 08/19/17 11:10 08/19/17 13:25 White Blood Count 16.4 Red Blood Count 4.75 Hemoglobin 15.1 Hematocrit 44.2 Mean Corpuscular Volume 93.1 Mean Corpuscular Hemoglobin 31.7 Mean Corpuscular Hemoglobin Concent 34.1 Red Cell Distribution Width 14.7 Platelet Count 169 Mean Platelet Volume 10.3 Neutrophils (%) (Auto) 89.9 Lymphocytes (%) (Auto) 3.8 Monocytes (%) (Auto) 6.0 Eosinophils (%) (Auto) 0.0 Basophils (%) (Auto) 0.3 Neutrophils # (Auto) 14.8 Lymphocytes # (Auto) 0.6 Monocytes # (Auto) 1.0 Eosinophils # (Auto) 0.0 Basophils # (Auto) 0.1 CBC Comment DIFF FINAL Differential Comment Blood Urea Nitrogen 30 Creatinine 1.37 Random Glucose 550 Total Protein 8.5 Albumin 2.9 Calcium Level 9.8 Alkaline Phosphatase 181 Aspartate Amino Transf (AST/SGOT) 51 Alanine Aminotransferase (ALT/SGPT) 47 Total Bilirubin 1.5 Sodium Level 121 Potassium Level 5.9 Chloride Level 85 Carbon Dioxide Level 21.3 Anion Gap 15 Estimat Glomerular Filtration Rate 48 B-Hydroxybutyrate 5.16 Urine Color YELLOW Urine Turbidity HAZY Urine pH 5.0 Urine Specific [place] 1.013 Urine Protein 30 Urine Glucose (UA) 1000 Urine Ketones 10 Urine Occult Blood MOD Urine Nitrite NEG Urine Bilirubin NEG Urine Urobilinogen LESS THAN 2.0 Urine Leukocyte Esterase MOD Urine RBC 7 Urine WBC 35 Urine WBC Clumps RARE Urine Squamous Epithelial Cells 6 Urine Bacteria MANY Urine Hyaline Casts 24 Urine Mucus FEW Microscopic Urinalysis Comment CULTURE INDICATED Blood Gas Puncture Site IV Blood Gas Patient Temperature 98.6 Venous Blood pH 7.28 Venous Blood Partial Pressure CO2 54 Venous Blood Partial Pressure O2 15 Venous Blood HCO3 25 Venous Blood Oxygen Saturation 7 Venous Blood Oxygen Content 1.5 Venous Blood Base Excess -1.1 Oxygen Delivery Device Y Blood Gas Inspired Oxygen 21 Date/Time Source Procedure Growth Status 08/19/17 11:10 Urine Random Urine Urine Culture Pending Received (Bessie Perez MD R1) Result Diagram: 08/19/17 1100 08/19/17 1100 Imaging Last Impressions Chest X-Ray 08/19/17 1414 Signed Impressions: Service Date/Time: August 14:23 - CONCLUSION: No acute disease. No significant change has occurred. Vinny Burch MD Abdomen/Pelvis CT 08/19/17 1051 Signed Impressions: Service Date/Time: August 11:44 - CONCLUSION: 1. No evidence of hydronephrosis or obstruction. No definite kidney stones. There is a tiny vascular calcification associated with the left kidney. 2. Multiple calcified uterine fibroids. Vinny Burch MD (Bessie Perez MD R1) Caprini VTE Risk Assessment Caprini VTE Risk Assessment: Mod/High Risk (score >= 2) Caprini Risk Assessment Model Point Value = 1 Point Value = 2 Point Value = 3 Point Value = 5 Age 41-60 Minor surgery BMI > 25 kg/m2 Swollen legs Varicose veins or History of unexplained or recurrent spontaneous Oral contraceptives or hormone replacement Sepsis (< 1 month) Serious lung disease, including pneumonia (< 1 month) Abnormal pulmonary function Acute myocardial infarction Congestive heart failure (< 1 month) History of inflammatory bowel disease Medical patient at bed rest Age 61-74 Arthroscopic surgery Major open surgery (> 45 min) Laparoscopic surgery (> 45 min) Malignancy Confined to bed (> 72 hours) Immobilizing plaster cast Central venous access Age >= 75 History of VTE Family history of VTE Factor V Leiden Prothrombin [id number] Lupus anticoagulant Anticardiolipin antibodies Elevated serum homocysteine Heparin-induced thrombocytopenia Other congenital or acquired thrombophilia Stroke (< 1 month) Elective arthroplasty Hip, pelvis, or leg fracture Acute spinal cord injury (< 1 month) Prophylaxis Regimen Total Risk Factor Score Risk Level Prophylaxis Regimen 0-1 Low Early ambulation 2 Moderate Order ONE of the following: *Sequential Compression Device (SCD) *Heparin 5000 units SQ BID 3-4 Higher Order ONE of the following medications: *Heparin 5000 units SQ TID *Enoxaparin/Lovenox 40 mg SQ daily (WT < 150 kg, CrCl > 30 mL/min) *Enoxaparin/Lovenox 30 mg SQ daily (WT < 150 kg, CrCl > 10-29 mL/min) *Enoxaparin/Lovenox 30 mg SQ BID (WT < 150 kg, CrCl > 30 mL/min) AND/OR *Sequential Compression Device (SCD) 5 or more Highest Order ONE of the following medications: *Heparin 5000 units SQ TID (Preferred with Epidurals) *Enoxaparin/Lovenox 40 mg SQ daily (WT < 150 kg, CrCl > 30 mL/min) *Enoxaparin/Lovenox 30 mg SQ daily (WT < 150 kg, CrCl > 10-29 mL/min) *Enoxaparin/Lovenox 30 mg SQ BID (WT < 150 kg, CrCl > 30 mL/min) AND *Sequential Compression Device (SCD) (Bessie Perez MD R1) Assessment and Plan Assessment and Plan Ms. Choudhary is a 57-year-old AF with a past medical history of DM and hyperthyroidism was not adequately treated presenting with right flank pain. She is being admitted for pyelonephritis and symptomatic hypoglycemia. Code Status Alternative code. DNI Discussed Condition With Dr. Martina Kerns and Dr. Tricia Rhodes (Bessie Perez MD R1) Attending Attestation Patient seen and examined. Case reviewed and discussed with the resident team. Agree with plan of care as discussed with me and documented in the resident note. (Tricia Rhodes MD) Problem List: (1) Hyperglycemia ICD Codes: R73.9 - Hyperglycemia, unspecified Status: Acute Plan: Patient admitted to the ED with glucose of 550. Blood sugar has not been well controlled at home. Patient does not have a PCP. Anion gap closed at 15. Beta hydroxybutyrate is 5.16. * Insulin drip initiated in the ED * Bedside glucose monitoring * Monitor potassium * Trend BMPs every 3 hours * Check A1C (2) Pyelonephritis ICD Codes: N12 - Tubulo-interstitial nephritis, not specified as acute or chronic Status: Acute Plan: Pt is experiencing dysuria, urinary frequency, urinary urgency, incontinence, and right flank pain. UA shows moderate leukocyte esterase, WBCs, bacteria. CT abdomen/pelvis shows no evidence of hydronephrosis or obstruction. No definite kidney stones. There is a tiny vascular calcification associated with the left kidney. * Urine culture pending * Started on Rocephin 1g in ED * Blood cultures pending (3) Hyponatremia ICD Codes: E87.1 - Hypo-osmolality and hyponatremia Status: Acute Plan: Sodium correction for hyperglycemia is 128. * Continue to monitor with serial BMPs * Pt currently NPO due to hyperglycemia, so no need for fluid restriction at this time (4) Hyperkalemia ICD Codes: E87.5 - Hyperkalemia Status: Acute Plan: Peaked T waves on EKG * Repeat EKG shows less peaking of T waves. Repeat in the morning * Continue to monitor * Will most likely drop with administration of insulin (5) Hyperthyroidism ICD Codes: E05.90 - Thyrotoxicosis, unspecified without thyrotoxic crisis or storm Status: Chronic Plan: Patient currently untreated for hyperthyroidism. * TSH low at 0.125 * Check free T3 and T4 * Consider thyroid ultrasound (6) FEN Status: Acute Plan: Fluids: NS @ 250 ml/hour, switched to D5 half normal saline @ 250ml/hr Electrolytes: Electrolyte dyscrasias noted, monitor and replete as needed Nutrition: NPO DVT Prophylaxis: Early ambulation. Lovenox 40mg subQ q24hr GI Prophylaxis: None (Bessie Perez MD R1) Physician Certification 2 Midnight Certification Type: Admission for Inpatient Services Order for Inpatient Services The services are ordered in accordance with Medicare regulations or non- Medicare payer requirements, as applicable. In the case of services not specified as inpatient-only, they are appropriately provided as inpatient services in accordance with the 2-midnight benchmark. Estimated LOS (days): 2 days is the estimated time the patient will need to remain in the hospital, assuming treatment plan goals are met and no additional complications. Post-Hospital Plan: Home (Bessie Perez MD R1) Bessie Perez MD R1 Aug 19, 2017 14:02 Tricia Rhodes MD Aug 20, 2017 14:16
[2017-08-19] MEDS ORDERED: MAGNESIUM HYDROXIDE SUSP 30 ML CUP PO PRN (14:15)
[2017-08-19] MEDS ORDERED: BISACODYL 10 MG SUPP RECTAL PRN (14:15)
[2017-08-19] MEDS ORDERED: LACTULOSE SYRUP 20 GM/30 ML CUP PO PRN (14:15)
[2017-08-19] MEDS ORDERED: SENNOSIDES 8.6 MG TAB PO PRN (14:15)
[2017-08-19] MEDS ORDERED: NALOXONE HCL 0.4 MG/ML AMP IV PUSH PRN ×2 (14:15→14:30)
[2017-08-19] MEDS ORDERED: ONDANSETRON HCL 4 MG/2 ML VIAL IVP PRN (14:15)
[2017-08-19] MEDS ORDERED: ACETAMINOPHEN 325 MG TAB PO PRN ×2 (14:15→14:30)
--- NOTE | 2017-08-19 14:28 | HHI.FPPN ---
Subjective Remarks Pt seen, examined and discussed with Drs. Perez and Shraddha Kerns. This is a 57 yo female with known diabetes mellitus on insulin who has been "running high" in the 400-500 range. Has been voiding frequently and complains of right flank pain. She has not seen a doctor for quite some time; looking for a primary care doctor. Denies fevers and dysuria. Also history of goiter and COPD. She smokes with30 pack year history of tobacco use, occasional weed, no other illicits. She uses etoh socially on holidays. She is disabled due to her right hand injury, has a neice locally, originally from [place]. Please refer to H&P for this admission for additional historical details and ROS for this admission. Objective Vitals Vital Signs Date Time Temp Pulse Resp B/P (MAP) Pulse Ox O2 Delivery O2 Flow Rate FiO2 08/19/17 10:35 98.0 114 16 117/72 (87) 97 Result Diagram: 08/19/17 1100 08/19/17 1100 Objective Remarks O. CONSTITUTIONAL/GEN: poorly nourished, in some distress with right flank pain. EYES: conjunctiva normal, PERRLA, EOMI. ENT: Mucous membranes and lips are dry. NECK: enlarged thyroid midline LUNGS: clear A-P, respiratory effort is normal. CARDIOVASCULAR: RR without murmur or gallop. No significant edema. GI/ABD: soft without masses, without organomegaly. : right CVA tenderness NEURO: No focal deficits. SKIN: color normal, no rashes noted. Dry skin. HEME/LYMPH: no bruising, petechia or significant adenopathy MUSC: back is normal in appearance. Extremities are normal in appearance. PSYCH/MENTAL STATUS: Alert and oriented x 3. A/P Assessment and Plan 57 yo female with hyperglycemia, goiter, pyelonephritis and COPD. Please see orders. Discharge Planning Case management. Attending Attestation Patient seen and examined. Case reviewed and discussed with the resident team. Agree with plan of care as discussed with me and documented in the resident note. Tricia Rhodes MD Aug 19, 2017 14:28
[2017-08-19] MEDS ORDERED: CHLORHEXIDINE GLUCONATE 2 % 1 PACK (2 CLOTHS) TOP PRN (14:30)
[2017-08-19] MEDS ORDERED: ACETAMINOPHEN/HYDROcodone 325 MG/7.5 MG TAB PO PRN (14:30)
[2017-08-19] MEDS ORDERED: RESP: ALBUTEROL 2.5 MG/3 ML NEB (PRN) INH (14:30)
[2017-08-19] MEDS ORDERED: HYDROmorphone HCL PF 1 MG/ML VIAL IV PUSH PRN (14:30)
[2017-08-19] MEDS ORDERED: ACETAMINOPHEN/HYDROcodone 325 MG/5 MG TAB PO PRN (14:30)
[2017-08-19] MEDS ORDERED: RESP: ALBUTEROL 2.5 MG/IPRATROPIUM 0.5 MG NEB (PRN) INH (14:30)
[2017-08-19] MEDS ORDERED: MISCELLANEOUS NURSING INFORMATION XX SCH (14:30)
--- NOTE | 2017-08-19 14:44 | RADRPT ---
EXAM DATE/TIME: 08/19/2017 14:23 [facility] COMPARISON: CHEST SINGLE AP, December 15, 2015, 16:38. CHEST SINGLE AP, November 23, 2016, 14:53. CHEST SINGLE AP, June 21, 2017, 21:56. INDICATIONS : Wheezing and shortness of breath. MEDICAL HISTORY : Congestive heart failure. Hypercholesterolemia. Hypertension. Asthma, COPD, Bronchitis, Heart att ack, AFIB, Coronary artery disease. SURGICAL HISTORY : Cardiac cath. ENCOUNTER: Initial ACUITY: 3 days PAIN SCORE: 0/10 LOCATION: Bilateral chest FINDINGS: A single view of the chest demonstrates the lungs to be symmetrically aerated without evidence of mas s, infiltrate or effusion. Stable prominent left hilar area which has previously been described as ec rose of the pulmonary artery by a CT scan from February 2008. The heart size is within normal limits and stable compared to the prior studies.. Osseous structures are intact and stable. CONCLUSION: No acute disease. No significant change has occurred. Vinny Burch MD on August 19, 2017 at 14:40 Board Certified Radiologist. This report was verified electronically.
[2017-08-19] MEDS: ENOXAPARIN SODIUM 40 MG/0.4 ML SYRINGE SQ SCH (15:48)
[2017-08-19] MEDS: DOCUSATE SODIUM 50 MG/SENNA 8.6 MG TAB PO SCH (21:00)
[2017-08-19 21:45] LABS: MAGNESIUM 1.9 MG/DL (1.5-2.5); PHOSPHORUS 1.7 MG/DL (2.5-4.9)
[2017-08-19 22:11] LABS: HEMOGLOBIN A1C 14.5 % (4.3-6.0)
[2017-08-19 22:12] LABS: BICARBONATE 20.1 MEQ/L (21.0-32.0); BLOOD UREA NITROGEN 24 MG/DL (7-18); CHLORIDE 102 MEQ/L (98-107); CREATININE 0.89 MG/DL (0.50-1.00); GLOMERULAR FILTRATION RATE 79 ML/MIN (>89); GLUCOSE,RANDOM 223 MG/DL (74-106); SODIUM (NA) 133 MEQ/L (136-145)
[2017-08-19] MEDS: DEXT 5%-NACL 0.45% 1000 ML INJ 1,000 ML IV SCH (22:35)
[2017-08-19] MEDS: SODIUM CHLORIDE 0.9% FLUSH 10 ML FLUSH IV FLUSH SCH (22:35)
[2017-08-20] VITALS (10 sets, daily range): BP systolic 95–184; BP diastolic 52–93; PULSE 85–120; RESP 14–28; TEMP 95.5–99.1; O2SAT 96–100
[2017-08-20 01:04] LABS: BICARBONATE 21.9 MEQ/L (21.0-32.0); CALCIUM 8.6 MG/DL (8.5-10.1); CREATININE 0.73 MG/DL (0.50-1.00)
[2017-08-20] MEDS ORDERED: POTASSIUM PHOSPHATE INJ 30 MMOL in SODIUM CHLOR 0.9% 250 ML INJ 250 ML IV PRN (02:30)
[2017-08-20] MEDS ORDERED: MAGNESIUM SULFATE INJ 2 GM in SODIUM CHLORIDE 0.9% INJ 96 ML IV PRN (02:30)
[2017-08-20] MEDS ORDERED: MAGNESIUM SULFATE INJ 4 GM in SODIUM CHLORIDE 0.9% INJ 92 ML IV PRN (02:30)
[2017-08-20] MEDS ORDERED: MAGNESIUM OXIDE 400 MG TAB PO PRN (02:30)
[2017-08-20] MEDS ORDERED: POTASSIUM PHOSPHATE MONOBASIC 500 MG TAB PO/TUBE PRN (02:30)
[2017-08-20] MEDS ORDERED: POTASSIUM PHOSPHATE MONOBASIC 500 MG TAB PO PRN (02:30)
[2017-08-20] MEDS ORDERED: POTASSIUM CHLORIDE 25 MEQ EFFERVESCENT TAB PO PRN (02:30)
[2017-08-20] MEDS ORDERED: POTASSIUM CHLOR 40 MEQ PREMIX 100 ML IV PRN ×2 (02:30)
[2017-08-20] MEDS ORDERED: SODIUM PHOSPHATE INJ 30 MMOL in SODIUM CHLOR 0.9% 250 ML INJ 240 ML IV PRN (02:30)
[2017-08-20] MEDS ORDERED: POTASSIUM CHLOR 20 MEQ PREMIX 100 ML IV PRN ×2 (02:30)
[2017-08-20] MEDS: DEXT 5%-NACL 0.45% 1000 ML INJ 1,000 ML IV SCH (02:41)
[2017-08-20] MEDS ORDERED: DEXTROSE 50% IN WATER 50 ML VIAL(D50) IV PUSH PRN (03:30)
[2017-08-20] MEDS ORDERED: GLUCAGON 1 MG/ML VIAL OTHER PRN (03:30)
[2017-08-20 03:53] LABS: AUTOMATED NEUTROPHIL # 9.7 TH/MM3 (1.8-7.7); BASOPHIL % 0.2 % (0.0-2.0); EOSINOPHIL # 0.1 TH/MM3 (0-0.4); EOSINOPHIL % 0.7 % (0.0-4.0); HEMATOCRIT 35.6 % (35.0-46.0); HEMOGLOBIN 12.3 GM/DL (11.6-15.3); LYMPHOCYTE # 0.3 TH/MM3 (1.0-4.8); MEAN CELL VOLUME 92.3 FL (80.0-100.0); MEAN CORPUSCULAR HEMOGLOBIN 31.9 PG (27.0-34.0); MEAN CORPUSCULAR HGB CONC 34.6 % (32.0-36.0); MEAN PLATELET VOLUME 9.5 FL (7.0-11.0); MONO % 6.4 % (0.0-8.0); MONOCYTE # 0.7 TH/MM3 (0-0.9); NEUT % 89.7 % (16.0-70.0); PLATELET COUNT 116 TH/MM3 (150-450); RED BLOOD COUNT 3.86 MIL/MM3 (4.00-5.30); RED CELL DISTRIBUTION WIDTH 14.4 % (11.6-17.2); WHITE BLOOD COUNT 10.8 TH/MM3 (4.0-11.0)
[2017-08-20] MEDS: CHLORHEXIDINE GLUCONATE 2 % 1 PACK (2 CLOTHS) TOP SCH (03:58)
[2017-08-20 04:30] LABS: ALBUMIN 2.2 GM/DL (3.4-5.0); ALKALINE PHOSPHATASE 126 U/L (45-117); ALT (GPT) 24 U/L (10-53); AST (GOT) 19 U/L (15-37); BICARBONATE 22.9 MEQ/L (21.0-32.0); BLOOD UREA NITROGEN 17 MG/DL (7-18); CALCIUM 8.2 MG/DL (8.5-10.1); CHLORIDE 100 MEQ/L (98-107); CREATININE 0.69 MG/DL (0.50-1.00); FREE T3 0.99 PG/ML (2.18-3.98); FREE T4 0.93 NG/DL (0.76-1.46); GLOMERULAR FILTRATION RATE 106 ML/MIN (>89); GLUCOSE,RANDOM 396 MG/DL (74-106); SODIUM (NA) 133 MEQ/L (136-145); TOTAL BILIRUBIN ADULT 0.9 MG/DL (0.2-1.0); TOTAL PROTEIN 6.5 GM/DL (6.4-8.2)
[2017-08-20] MEDS: INSULIN ASPART SUPPLEMENTAL SCALE SQ SCH ×4 (08:00→21:13)
[2017-08-20] MEDS: DOCUSATE SODIUM 50 MG/SENNA 8.6 MG TAB PO SCH ×2 (09:00→21:00)
[2017-08-20] MEDS: INSULIN DETEMIR 100 UNITS/ML VIAL SQ SCH ×2 (09:00→21:14)
[2017-08-20] MEDS: LISINOPRIL 5 MG TAB PO SCH (09:20)
[2017-08-20] MEDS: SODIUM CHLORIDE 0.9% FLUSH 10 ML FLUSH IV FLUSH SCH ×2 (09:21→21:14)
--- NOTE | 2017-08-20 09:57 | EKG ---
Date Performed: 08/19/2017 Time Performed: 19:18:04 PTAGE: 57 years EKG: SINUS TACHYCARDIA ABNORMAL RHYTHM ECG PREVIOUS TRACING : 08/19/2017 14.16 Since prior tracing, sinus rate is faster. DOCTOR: Al Moss Interpretating Date/Time 08/20/2017 09:56:57
--- NOTE | 2017-08-20 09:57 | EKG ---
Date Performed: 08/19/2017 Time Performed: 14:16:49 PTAGE: 57 years EKG: Sinus rhythm POSSIBLE LEFT ATRIAL ENLARGEMENT BORDERLINE ECG PREVIOUS TRACING : 06/21/2017 21.30 Since previous tracing, previously seen T-wave changes have improved. DOCTOR: Al Moss Interpretating Date/Time 08/20/2017 09:56:42
[2017-08-20] MEDS: cefTRIAXone INJ 1,000 MG in SODIUM CHLORIDE 0.9% INJ 100 ML IV SCH (12:42)
[2017-08-20] MEDS ORDERED: cefTRIAXone INJ 2,000 MG in SODIUM CHLORIDE 0.9% INJ 100 ML IV SCH (13:00)
--- NOTE | 2017-08-20 13:59 | HHI.FPPN ---
Subjective Remarks Patient feeling "much better." She reports eating cereal with skim milk for breakfast without difficulty. Still coughing up sputum, but then swallowing it. Denies any new fevers, chills, chest pain, or SOB. Did not have PCP because she could not find one in the area for the past 2 months. Previous PCP was Dr. Wolff. (Alfonzo Cantu MD, R3) Objective Vitals Vital Signs Date Time Temp Pulse Resp B/P (MAP) Pulse Ox O2 Delivery O2 Flow Rate FiO2 08/20/17 12:00 95 08/20/17 12:00 97.8 95 15 99/61 (74) 100 08/20/17 10:00 85 08/20/17 08:00 91 08/20/17 08:00 97.9 91 14 105/60 (75) 100 08/20/17 06:00 90 08/20/17 04:00 99.1 96 24 95/52 (66) 100 08/20/17 04:00 96 08/20/17 02:00 117 08/20/17 00:00 99.1 120 28 184/93 (123) 100 08/20/17 00:00 120 08/19/17 22:00 113 08/19/17 20:00 98.5 116 24 116/67 (83) 100 08/19/17 20:00 116 08/19/17 17:30 99.3 112 12 162/74 (103) 92 08/19/17 16:52 97 08/19/17 16:30 112 16 166/77 (106) 97 Room Air 08/19/17 15:33 102 18 176/81 (112) 98 Room Air I/O 08/19/17 08/19/17 08/19/17 08/20/17 08/20/17 08/20/17 07:00 15:00 23:00 07:00 15:00 23:00 Intake Total 480 ml 1225 ml Balance 480 ml 1225 ml Intake Oral 480 ml IV Total 1225 ml # Voids 1 3 (Alfonzo Cantu MD, R3) Result Diagram: 08/20/17 0338 08/20/17 0338 Imaging Last 72 hours Impressions Chest X-Ray 08/19/17 1414 Signed Impressions: Service Date/Time: August 14:23 - CONCLUSION: No acute disease. No significant change has occurred. Vinny Burch MD Abdomen/Pelvis CT 08/19/17 1051 Signed Impressions: Service Date/Time: August 11:44 - CONCLUSION: 1. No evidence of hydronephrosis or obstruction. No definite kidney stones. There is a tiny vascular calcification associated with the left kidney. 2. Multiple calcified uterine fibroids. Vinny Burch MD Objective Remarks O. CONSTITUTIONAL/GEN: poorly nourished, in some distress with right flank pain. EYES: conjunctiva normal, PERRLA, EOMI. ENT: Mucous membranes and lips are dry. NECK: enlarged thyroid midline LUNGS: clear A-P, respiratory effort is normal. CARDIOVASCULAR: RR without murmur or gallop. No significant edema. GI/ABD: soft without masses, without organomegaly. : right CVA tenderness NEURO: No focal deficits. SKIN: color normal, no rashes noted. Dry skin. HEME/LYMPH: no bruising, petechia or significant adenopathy MUSC: back is normal in appearance. Extremities are normal in appearance. PSYCH/MENTAL STATUS: Alert and oriented x 3. (Alfonzo Cantu MD, R3) A/P Assessment and Plan Ms. Choudhary is a 57-year-old AF with a past medical history of DM and hyperthyroidism was not adequately treated presenting with right flank pain. She is being admitted for pyelonephritis and symptomatic hypoglycemia. Discharge Planning Case management. (Alfonzo Cantu MD, R3) Attending Attestation Patient seen and examined. Case reviewed and discussed with the resident team. Agree with plan of care as discussed with me and documented in the resident note. (Tricia Rhodes MD) Problem List: (1) Hyperglycemia ICD Codes: R73.9 - Hyperglycemia, unspecified Status: Acute Plan: Patient admitted to the ED with glucose of 550. Blood sugar has not been well controlled at home. Patient does not have a PCP. Anion gap closed at 15. Beta hydroxybutyrate is 5.16. * Since admission, Glucose corrected to 227 and Gap closed to 15 at ~00:00 hrs. This morning BG increased to 396 and Gap remained closed at 10. Beta- hydroxybutrate reduced from 5.16 --> 0.78. * Will start 0.5 units / kg insulin divided BID (Levemir 5 units BID), also cover with mealtime SS NovoLOG. * D/c D5W NS, check BG qACHS (2) Pyelonephritis ICD Codes: N12 - Tubulo-interstitial nephritis, not specified as acute or chronic Status: Acute Plan: Pt is experiencing dysuria, urinary frequency, urinary urgency, incontinence, and right flank pain. UA shows moderate leukocyte esterase, WBCs, bacteria. CT abdomen/pelvis shows no evidence of hydronephrosis or obstruction. No definite kidney stones. There is a tiny vascular calcification associated with the left kidney. * Urine culture showing Gram negative Jesus Alberto (preliminary). Follow sensitivities. * Rocephin 1g q 24 hrs (08/19--) has recieved 2 doses * Blood culturesshowing no growth x 1 day. (3) Hyponatremia ICD Codes: E87.1 - Hypo-osmolality and hyponatremia Status: Acute Plan: Corrected: Sodium correction for hyperglycemia is 138-140. (4) Hyperkalemia ICD Codes: E87.5 - Hyperkalemia Status: Acute Plan: Peaked T waves on EKG - resolved. K+ was 4.0 on 08/20 in AM. (5) Hyperthyroidism ICD Codes: E05.90 - Thyrotoxicosis, unspecified without thyrotoxic crisis or storm Status: Chronic Plan: Patient currently untreated for hyperthyroidism. * TSH low at 0.125 * T3 and T4= 0.99 and 0.93 respectively. * Consider thyroid ultrasound (6) FEN Status: Acute Plan: Fluids: Tolerating PO. Electrolytes: Electrolyte dyscrasias noted, monitor and replete as needed Nutrition: Diabetic Diet DVT Prophylaxis: Early ambulation. Lovenox 40mg subQ q24hr. GI Prophylaxis: None SDW Dr. Tricia Rhodes, Dr. Martina Kerns, Dr. Bessie Perez, and Dr. Arley Villa. (Alfonzo Cantu MD, R3) Alfonzo Cantu MD, R3 Aug 20, 2017 13:59 Tricia Rhodes MD Aug 20, 2017 14:18
[2017-08-20] MEDS: RESP: ALBUTEROL 2.5 MG/IPRATROPIUM 0.5 MG NEB (SCH) NEB (14:00)
[2017-08-20] MEDS: ENOXAPARIN SODIUM 40 MG/0.4 ML SYRINGE SQ SCH (15:30)
[2017-08-21] VITALS: BP 108/65; PULSE 82; RESP 18; TEMP 98.3; O2SAT 99
[2017-08-21] MEDS: CHLORHEXIDINE GLUCONATE 2 % 1 PACK (2 CLOTHS) TOP SCH (04:00)
[2017-08-21] MEDS: RESP: ALBUTEROL 2.5 MG/IPRATROPIUM 0.5 MG NEB (SCH) NEB ×3 (07:25→19:56)
[2017-08-21 08:00] VITALS: BP 119/61; PULSE 92; RESP 17; TEMP 96.3; O2SAT 98
[2017-08-21] MEDS ORDERED: INSULIN DETEMIR 100 UNITS/ML VIAL SQ SCH ×3 (08:00→21:00)
[2017-08-21] MEDS: INSULIN ASPART SUPPLEMENTAL SCALE SQ SCH ×4 (08:44→20:22)
[2017-08-21] MEDS: LISINOPRIL 5 MG TAB PO SCH (08:44)
[2017-08-21] MEDS: DOCUSATE SODIUM 50 MG/SENNA 8.6 MG TAB PO SCH ×2 (08:44→20:24)
[2017-08-21] MEDS: SODIUM CHLORIDE 0.9% FLUSH 10 ML FLUSH IV FLUSH SCH ×2 (08:45→20:24)
[2017-08-21 08:52] LABS: AUTOMATED NEUTROPHIL # 5.8 TH/MM3 (1.8-7.7); BASOPHIL % 0.4 % (0.0-2.0); EOSINOPHIL # 0.1 TH/MM3 (0-0.4); EOSINOPHIL % 0.8 % (0.0-4.0); HEMATOCRIT 35.9 % (35.0-46.0); HEMOGLOBIN 12.3 GM/DL (11.6-15.3); LYMPH % 11.1 % (9.0-44.0); LYMPHOCYTE # 0.9 TH/MM3 (1.0-4.8); MEAN CORPUSCULAR HEMOGLOBIN 31.3 PG (27.0-34.0); MEAN CORPUSCULAR HGB CONC 34.4 % (32.0-36.0); MONO % 12.4 % (0.0-8.0); NEUT % 75.3 % (16.0-70.0); PLATELET COUNT 112 TH/MM3 (150-450); RED BLOOD COUNT 3.94 MIL/MM3 (4.00-5.30); RED CELL DISTRIBUTION WIDTH 14.5 % (11.6-17.2); WHITE BLOOD COUNT 7.7 TH/MM3 (4.0-11.0)
[2017-08-21] MEDS: INSULIN DETEMIR 100 UNITS/ML VIAL SQ SCH ×2 (09:00→20:22)
[2017-08-21 09:31] LABS: ALBUMIN 2.1 GM/DL (3.4-5.0); ALKALINE PHOSPHATASE 144 U/L (45-117); ALT (GPT) 33 U/L (10-53); AST (GOT) 32 U/L (15-37); BICARBONATE 24.4 MEQ/L (21.0-32.0); BLOOD UREA NITROGEN 10 MG/DL (7-18); CALCIUM 8.6 MG/DL (8.5-10.1); CHLORIDE 99 MEQ/L (98-107); CREATININE 0.46 MG/DL (0.50-1.00); GLOMERULAR FILTRATION RATE 169 ML/MIN (>89); GLUCOSE,RANDOM 161 MG/DL (74-106); SODIUM (NA) 131 MEQ/L (136-145); TOTAL BILIRUBIN ADULT 0.7 MG/DL (0.2-1.0); TOTAL PROTEIN 6.4 GM/DL (6.4-8.2)
--- NOTE | 2017-08-21 11:43 | HHI.FPPN ---
Subjective Remarks Patient was seen and examined this morning. She feels better this morning aside from mild right sided abdominal/flank pain. No reported nausea, vomiting, chest pain, shortness of breath. Eating diabetic diet without issues. Discussed elevated blood sugars and recommendation for long-acting insulin in addition to supplemental insulin. (Martina Kerns MD R2) Objective Vitals Vital Signs Date Time Temp Pulse Resp B/P (MAP) Pulse Ox O2 Delivery O2 Flow Rate FiO2 08/21/17 08:00 96.3 92 17 119/61 (80) 98 08/21/17 00:00 98.3 82 18 108/65 (79) 99 08/20/17 19:00 97.4 92 18 98/55 (69) 96 08/20/17 16:00 95.5 95 16 95/60 (72) 96 08/20/17 14:00 92 08/20/17 12:00 95 08/20/17 12:00 97.8 95 15 99/61 (74) 100 I/O 08/20/17 08/20/17 08/20/17 08/21/17 08/21/17 08/21/17 07:00 15:00 23:00 07:00 15:00 23:00 Intake Total 480 ml 1225 ml 240 ml Balance 480 ml 1225 ml 240 ml Intake Oral 480 ml 240 ml IV Total 1225 ml # Voids 3 3 (Martina Kerns MD R2) Result Diagram: 08/21/17 0745 08/21/17 0745 Imaging Last Impressions Chest X-Ray 08/19/17 1414 Signed Impressions: Service Date/Time: August 14:23 - CONCLUSION: No acute disease. No significant change has occurred. Vinny Burch MD Abdomen/Pelvis CT 08/19/17 1051 Signed Impressions: Service Date/Time: August 11:44 - CONCLUSION: 1. No evidence of hydronephrosis or obstruction. No definite kidney stones. There is a tiny vascular calcification associated with the left kidney. 2. Multiple calcified uterine fibroids. Vinny Burch MD Objective Remarks GENERAL: This is a thin, malnoourished female patient, in no apparent distress. Breakfast tray at bedside with 25-50% completed meal. SKIN: No rashes, ecchymoses or lesions. Cool and dry. HEAD: Atraumatic. Normocephalic. EYES: Pupils equal round and reactive. Extraocular motions intact. No scleral icterus. No injection or drainage. ENT: Nose without bleeding, purulent drainage or septal hematoma. Throat without erythema, tonsillar hypertrophy or exudate. Uvula midline. Airway patent. Enlarged thyroid, not nodular. NECK: Trachea midline. No JVD or lymphadenopathy. Supple, nontender. CARDIOVASCULAR: Regular rate and rhythm without murmurs, gallops, or rubs. RESPIRATORY: Clear to auscultation. Breath sounds equal bilaterally. No wheezes , rales, or rhonchi. GASTROINTESTINAL: Abdomen soft, non-tender, nondistended. No hepato-splenomegaly , or palpable masses. No guarding. Suprapubic tenderness and right CVA tenderness improved. MUSCULOSKELETAL: Extremities without clubbing, cyanosis, or edema. No joint tenderness, effusion, or edema noted. No calf tenderness. NEUROLOGICAL: Awake and alert. Motor and sensory grossly within normal limits. Normal speech. Medications and IVs Inpatient Medications Acetaminophen (Tylenol) 650 mg Q6H PRN PO PAIN 1-10; Start 08/19/17 at 14:30; Stop 08/19/17 at 14:39; Status DC Acetaminophen/ Hydrocodone Bitart ([place] 5-325 Mg) 1 tab Q4H PRN PO PAIN SCALE 3 TO 5 Last administered on 08/20/17 01:02; Start 08/19/17 at 14:30 Acetaminophen/ Hydrocodone Bitart ([place] 7.5-325 Mg) 1 tab Q4H PRN PO PAIN SCALE 6 TO 10 Last administered on 08/20/17 18:11; Start 08/19/17 at 14:30 Albuterol Sulfate (Albuterol Neb) 2.5 mg Q2HR NEB PRN INH SOB/WHEEZING; Start 08/19/17 at 14:30 Albuterol/ Ipratropium (Duoneb Neb) 1 ampule Q6HR WHILE AWAKE NEB NEB Last administered on 08/21/17 11:04; Start 08/20/17 at 14:00 Bisacodyl (Dulcolax Supp) 10 mg DAILY PRN RECTAL SEVERE CONSITIPATION; Start 08/19/17 at 14:15 Ceftriaxone Sodium 1000 mg/ Sodium Chloride 100 ml @ 200 mls/hr Q24H IV Last administered on 08/20/17 12:42; Start 08/20/17 at 13:00 Chlorhexidine Gluconate (Chlorhexidine 2% Cloth) 3 pack UNSCH PRN TOP HYGIENIC CARE; Start 08/19/17 at 14:30 Dextrose (D50w (Vial) Inj) 50 ml UNSCH PRN IV PUSH HYPOGLYCEMIA - SEE COMMENTS ; Start 08/20/17 at 03:30 Dextrose/Sodium Chloride 1,000 ml @ 125 mls/hr Q8H IV Last administered on 02:41; Start 08/19/17 at 22:00; Stop 08/20/17 at 12:00; Status DC Enoxaparin Sodium (Lovenox Inj) 40 mg Q24H SQ Last administered on 08/20/17 15 :30; Start 08/19/17 at 15:00 Glucagon (Glucagon Inj) 1 mg UNSCH PRN OTHER HYPOGLYCEMIA-SEE COMMENTS; Start 08/20/17 at 03:30 Hydromorphone HCl (Dilaudid Pf Inj) 1 mg Q3H PRN IV PUSH BREAKTHROUGH PAIN; Start 08/19/17 at 14:30 Insulin Aspart (NovoLOG SUPPLEMENTAL SCALE) 1 ACHS SLIDING SCALE SQ Last administered on 08/21/17 08:44; Start 08/20/17 at 08:00 Insulin Detemir (Levemir Inj) 5 units ONCE SQ Last administered on 08/21/17 09 :15; Start 08/21/17 at 09:00; Stop 08/21/17 at 10:00; Status DC Insulin Human Regular (NovoLIN R INJ) 5 units ONCE ONCE IV PUSH Last administered on 08/19/17 13:11; Start 08/19/17 at 13:00; Stop 08/19/17 at 13:01 ; Status DC Insulin Human Regular 100 units/ Sodium Chloride 100 ml @ 4.5 mls/hr TITRATE PRN IV Blood Sugar Management Last administered on 08/19/17 16:31; Start at 13:15; Stop 08/19/17 at 21:55; Status DC Lactulose (Lactulose Liq) 30 ml DAILY PRN PO SEVERE CONSITIPATION; Start at 14:15 Lisinopril (Prinivil) 5 mg DAILY PO Last administered on 08/21/17t 08:44; Start 08/20/17 at 09:00 Magnesium Hydroxide (Milk Of Magnesia Liq) 30 ml Q12H PRN PO Mild constipation ; Start 08/19/17 at 14:15 Magnesium Oxide (Mag-Ox) 800 mg UNSCH PRN PO For Magnesium 1.2 - 1.6 mg/dL; Start 08/20/17 at 02:30; Stop 08/21/17 at 08:34; Status DC Magnesium Sulfate 2 gm/Sodium Chloride 100 ml @ 50 mls/hr UNSCH PRN IV For Magnesium 1.2 - 1.6 mg/dL; Start 08/20/17 at 02:30; Stop 08/21/17 at 08:34; Status DC Magnesium Sulfate 4 gm/Sodium Chloride 100 ml @ 50 mls/hr UNSCH PRN IV For Magnesium 0.9 - 1.1 mg/dL; Start 08/20/17 at 02:30; Stop 08/21/17 at 08:34; Status DC Miscellaneous Information 1 Q361D XX ; Start 08/19/17 at 14:30 Naloxone HCl (Narcan Inj) 0.4 mg UNSCH PRN IV PUSH SEE LABEL COMMENTS; Start 08/19/17 at 14:30 Ondansetron HCl (Zofran Inj) 4 mg Q6H PRN IVP NAUSEA OR VOMITING; Start at 14:15 Potassium Phosphate (K-Phos) 2,000 mg UNSCH PRN PO/TUBE SEE LABEL COMMENTS; Start 08/20/17 at 02:30; Stop 08/21/17 at 08:34; Status DC Potassium Phosphate 30 mmol/ Sodium Chloride 260 ml @ 42 mls/hr UNSCH PRN IV SEE LABEL COMMENTS; Start 08/20/17 at 02:30; Stop 08/21/17 at 08:34; Status DC Potassium Bicarb/ Potassium Chloride (K-Lyte Cl Eff) 50 meq UNSCH PRN PO For Potassium 3.3 - 3.5 mEq/L; Start 08/20/17 at 02:30; Stop 08/21/17 at 08:34; Status DC Potassium Chloride 100 ml @ 50 mls/hr Q2H PRN IV For Potassium 3.3 - 3.5 mEq/L ; Start 08/20/17 at 02:30; Stop 08/21/17 at 08:34; Status DC Senna/Docusate Sodium (Taylor-Colace) 1 tab BID PO Last administered on 08:44; Start 08/19/17 at 21:00 Sennosides (Senokot) 17.2 mg Q12H PRN PO Moderate constipation; Start 08/19/17 at 14:15 Sodium Chloride (NS Flush) 2 ml BID IV FLUSH Last administered on 08/21/17 08: 45; Start 08/19/17 at 21:00 Sodium Phosphate 30 mmol/Sodium Chloride 250 ml @ 42 mls/hr UNSCH PRN IV For Phosphorus < 2.5 mg/dL Last administered on 08/20/17 03:22; Start 08/20/17 at 02:30; Stop 08/21/17 at 08:34; Status DC (Martina Kerns MD R2) Urinary Catheter: No (Martina Kerns MD R2) Vascular Central Line Catheter: No (Martina Kerns MD R2) A/P Assessment and Plan Ms. Choudhary is a 57-year-old AF with a past medical history of uncontrolled DM and hyperthyroidism presenting with severe right flank pain. She is being admitted for pyelonephritis and symptomatic hyperglycemia. Discharge Planning Case management to assist with outpatient PCP setup and medications, discharge planned for 08/22. Patient will need long-acting and supplemental insulin in addition to PO antibiotics for pyelonephritis upon discharge. (Martina Kerns MD R2) Attending Attestation Patient seen and examined. Case reviewed and discussed with the resident team. Agree with plan of care as discussed with me and documented in the resident note. (Tricia Rhodes MD) Problem List: (1) Diabetes mellitus ICD Codes: E11.9 - Type 2 diabetes mellitus without complications Status: Chronic Plan: Patient admitted to the ED with glucose of 550. Blood sugar has not been well controlled at home. Patient does not have a PCP. Anion gap closed at 15 on admission, no DKA. Howerve, Beta hydroxybutyrate is 5.16 on admission, now wnl. * Glucose corrected quickly to low 200s. On 08/20 blood glucose increased to 396 and Gap remained closed at 10. Beta-hydroxybutrate reduced from 5.16 --> 0.78. * Was given IVF aggressively initially, starting with NS @ 250cc/hr, transitioning to d5NS when glucose decreased * Potassium monitored and remained wnl, will continue to monitor * Phosphorus low at 2.1, will recheck. Likely related to poor nutrition. Will replete if needed * On 08/20 initiated 0.5 units / kg insulin divided into long-acting (Levemir 5 units BID), also cover with mealtime SS NovoLOG. * On 08/21 Levemir increased to 10U BID given significant supplemental Novolog needs on 08/20. * Check BG qACHS (2) Pyelonephritis ICD Codes: N12 - Tubulo-interstitial nephritis, not specified as acute or chronic Status: Acute Plan: Pt is experiencing dysuria, urinary frequency, urinary urgency, incontinence, and right flank pain. UA shows moderate leukocyte esterase, WBCs, bacteria. CT abdomen/pelvis shows no evidence of hydronephrosis or obstruction. No definite kidney stones. There is a tiny vascular calcification associated with the left kidney. * Urine culture showing Gram negative Jesus Alberto (preliminary). Follow sensitivities. * Rocephin 1g q 24 hrs (08/19--) has recieved 2 doses * Blood culturesshowing no growth x 1 day. (3) Hyponatremia ICD Codes: E87.1 - Hypo-osmolality and hyponatremia Status: Acute Plan: Corrected: Sodium correction for hyperglycemia is 138-140. Continue to monitor and fluid restrict PRN (4) Hyperkalemia ICD Codes: E87.5 - Hyperkalemia Status: Resolved Plan: Peaked T waves on EKG - resolved. (5) Hyperthyroidism ICD Codes: E05.90 - Thyrotoxicosis, unspecified without thyrotoxic crisis or storm Status: Chronic Plan: Patient currently untreated for hyperthyroidism. * TSH low at 0.125 * T3 and T4= 0.99 and 0.93 respectively. * Consider thyroid ultrasound as outpt (6) Tobacco abuse ICD Codes: Z72.0 - Tobacco use Status: Chronic Plan: Chronic 1/2PPD smoker. Cough suggestive of COPD * Duonebs q6hr, Albuterol q2hr PRN * Nicotine patch offered * Counseled on [place] quitline resources, given handout (7) FEN Status: Acute Plan: Fluids: Tolerating PO. Electrolytes: Monitor and replete as needed Nutrition: Diabetic Diet 1800kcal DVT Prophylaxis: Early ambulation. Lovenox 40mg subQ q24hr. GI Prophylaxis: None SDW Dr. Tricia Rhodes (Matrina Kerns MD R2) Martina Kerns MD R2 Aug 21, 2017 11:43 Tricia Rhodes MD Aug 21, 2017 12:28
[2017-08-21] MEDS: NICOTINE 14 MG/24 HR PATCH T-DERMAL SCH (11:45)
[2017-08-21 12:00] VITALS: BP 101/59; PULSE 102; RESP 17; TEMP 100.1; O2SAT 98
[2017-08-21] MEDS: cefTRIAXone INJ 1,000 MG in SODIUM CHLORIDE 0.9% INJ 100 ML IV SCH (12:10)
[2017-08-21] MEDS: ENOXAPARIN SODIUM 40 MG/0.4 ML SYRINGE SQ SCH ×2 (15:00→15:19)
[2017-08-21 16:00] VITALS: BP 153/85; PULSE 110; RESP 19; TEMP 96.5; O2SAT 99
[2017-08-21] MEDS ORDERED: REMOVE OLD PATCH T-DERMAL SCH (21:00)
[2017-08-21 22:35] VITALS: BP 123/70; PULSE 96; RESP 16; TEMP 99.6; O2SAT 98
[2017-08-22 01:53] VITALS: BP 107/54; PULSE 93; RESP 18; TEMP 99.1; O2SAT 97
[2017-08-22] MEDS: CHLORHEXIDINE GLUCONATE 2 % 1 PACK (2 CLOTHS) TOP SCH (04:29)
[2017-08-22 08:00] VITALS: BP 130/70; PULSE 87; RESP 17; TEMP 98.4; O2SAT 99
[2017-08-22] MEDS: DOCUSATE SODIUM 50 MG/SENNA 8.6 MG TAB PO SCH (08:09)
[2017-08-22] MEDS: LISINOPRIL 5 MG TAB PO SCH (08:09)
[2017-08-22] MEDS: SODIUM CHLORIDE 0.9% FLUSH 10 ML FLUSH IV FLUSH SCH (08:09)
[2017-08-22] MEDS: INSULIN ASPART SUPPLEMENTAL SCALE SQ SCH ×2 (08:10→12:07)
[2017-08-22] MEDS: NICOTINE 14 MG/24 HR PATCH T-DERMAL SCH (08:10)
[2017-08-22] MEDS ORDERED: VENTAER INH (08:20)
[2017-08-22] MEDS ORDERED: LISI-519 PO (08:20)
[2017-08-22] MEDS: RESP: ALBUTEROL 2.5 MG/IPRATROPIUM 0.5 MG NEB (SCH) NEB (08:41)
[2017-08-22] MEDS ORDERED: INSULIN DETEMIR 100 UNITS/ML VIAL SQ SCH (09:00)
[2017-08-22] MEDS ORDERED: NITROFURANTOIN MONOHYD MACROCR 100 MG CAP PO SCH (09:00)
[2017-08-22 09:03] LABS: CALCIUM 8.6 MG/DL (8.5-10.1)
[2017-08-22 09:09] LABS: BICARBONATE 24.3 MEQ/L (21.0-32.0); CREATININE 0.45 MG/DL (0.50-1.00)
[2017-08-22] MEDS ORDERED: BIOM30MI (10:13)
[2017-08-22] MEDS ORDERED: GLUCTES12 (10:13)
[2017-08-22] MEDS ORDERED: GLUCKIT15 (10:13)
[2017-08-22] MEDS ORDERED: LEVEMIR SQ (10:13)
[2017-08-22] MEDS ORDERED: LANCETS1 MI1 (10:13)
[2017-08-22] MEDS ORDERED: NOVOLOGP2 SQ (10:13)
[2017-08-22] MEDS ORDERED: INSU1MIS15 (10:13)
[2017-08-22] MEDS ORDERED: NITR100C4 PO (10:15)
--- NOTE | 2017-08-22 10:15 | HHI.DCPOC ---
Discharge Care Plan Diagnosis: (1) Diabetes mellitus (2) Pyelonephritis (3) Tobacco abuse Goals to Promote Your Health * To prevent worsening of your condition and complications * To maintain your health at the optimal level Directions to Meet Your Goals Take your medications as prescribed Follow your dietary instruction Follow activity as directed Keep your appointments as scheduled Take your immunizations and boosters as scheduled If your symptoms worsen call your PCP, if no PCP go to Urgent Care Center or Emergency Room Smoking is Dangerous to Your Health. Avoid second hand smoke Call the 24-hour hour crisis hotline for domestic abuse at Martina Kerns MD R2 Aug 22, 2017 10:15
--- NOTE | 2017-08-22 10:15 | HHI.DCPOC ---
Discharge Care Plan Diagnosis: (1) Diabetes mellitus (2) Pyelonephritis (3) Tobacco abuse Goals to Promote Your Health * To prevent worsening of your condition and complications * To maintain your health at the optimal level Directions to Meet Your Goals Take your medications as prescribed Follow your dietary instruction Follow activity as directed Keep your appointments as scheduled Take your immunizations and boosters as scheduled If your symptoms worsen call your PCP, if no PCP go to Urgent Care Center or Emergency Room Smoking is Dangerous to Your Health. Avoid second hand smoke Call the 24-hour hour crisis hotline for domestic abuse at Martina Kerns MD R2 Aug 22, 2017 10:15
--- NOTE | 2017-08-22 10:15 | HHI.DCPOC ---
Discharge Care Plan Diagnosis: (1) Diabetes mellitus (2) Pyelonephritis (3) Tobacco abuse Goals to Promote Your Health * To prevent worsening of your condition and complications * To maintain your health at the optimal level Directions to Meet Your Goals Take your medications as prescribed Follow your dietary instruction Follow activity as directed Keep your appointments as scheduled Take your immunizations and boosters as scheduled If your symptoms worsen call your PCP, if no PCP go to Urgent Care Center or Emergency Room Smoking is Dangerous to Your Health. Avoid second hand smoke Call the 24-hour hour crisis hotline for domestic abuse at Martina Kerns MD R2 Aug 22, 2017 10:15
--- NOTE | 2017-08-22 10:28 | HHI.FPPN ---
Subjective Remarks Patient was seen and examined this morning. She feels much better than when she arrived and is eager to go home. She has mild abdominal pain at this time but this is also improved. On review of records she required 22 units of supplemental NovoLog in addition to the 10 units BID Levemir dosing yesterday. No new symptoms or concerns. She is motivated to improve her health and will consider quitting smoking and agrees to use insulin. (Martina Kerns MD R2) Objective Vitals Vital Signs Date Time Temp Pulse Resp B/P (MAP) Pulse Ox O2 Delivery O2 Flow Rate FiO2 08/22/17 08:00 98.4 87 17 130/70 (90) 99 08/22/17 01:53 99.1 93 18 107/54 (71) 97 08/21/17 22:35 99.6 96 16 123/70 (87) 98 08/21/17 16:00 96.5 110 19 153/85 (107) 99 08/21/17 12:00 100.1 102 17 101/59 (73) 98 I/O 08/21/17 08/21/17 08/21/17 08/22/17 08/22/17 08/22/17 07:00 15:00 23:00 07:00 15:00 23:00 Intake Total 240 ml 100 ml 500 ml Output Total 700 ml Balance 240 ml 100 ml 500 ml -700 ml Intake Oral 240 ml 500 ml IV Total 100 ml Output Urine Total 700 ml # Voids 3 3 # Bowel Movements 1 1 (Martina Kerns MD R2) Result Diagram: 08/21/17 0745 08/22/17 0503 Imaging Last Impressions Chest X-Ray 08/19/17 1414 Signed Impressions: Service Date/Time: August 14:23 - CONCLUSION: No acute disease. No significant change has occurred. Vinny Burch MD Abdomen/Pelvis CT 08/19/17 1051 Signed Impressions: Service Date/Time: August 11:44 - CONCLUSION: 1. No evidence of hydronephrosis or obstruction. No definite kidney stones. There is a tiny vascular calcification associated with the left kidney. 2. Multiple calcified uterine fibroids. Vinny Burch MD Objective Remarks GENERAL: This is a thin, malnourished female patient, in no apparent distress. Breakfast tray at bedside with 50% completed meal. She is in good spirits this morning. SKIN: No rashes, ecchymoses or lesions. Cool and dry. HEAD: Atraumatic. Normocephalic. EYES: Pupils equal round and reactive. Extraocular motions intact. No scleral icterus. No injection or drainage. ENT: Nose without bleeding or purulent drainage. Throat without erythema, tonsillar hypertrophy or exudate. Airway patent. Enlarged thyroid, not nodular. NECK: Trachea midline. No JVD or lymphadenopathy. Supple, nontender. CARDIOVASCULAR: Regular rate and rhythm without murmurs, gallops, or rubs. RESPIRATORY: Clear to auscultation. Breath sounds equal bilaterally. No wheezes , rales, or rhonchi. GASTROINTESTINAL: Abdomen soft, non-tender, nondistended. No hepato-splenomegaly , or palpable masses. No guarding. MUSCULOSKELETAL: Extremities without clubbing, cyanosis, or edema. No joint tenderness, effusion, or edema noted. No calf tenderness. NEUROLOGICAL: Awake and alert. Motor and sensory grossly within normal limits. Normal speech. Medications and IVs Inpatient Medications Acetaminophen (Tylenol) 650 mg Q6H PRN PO PAIN 1-10; Start 08/19/17 at 14:30; Stop 08/19/17 at 14:39; Status DC Acetaminophen/ Hydrocodone Bitart ([place] 5-325 Mg) 1 tab Q4H PRN PO PAIN SCALE 3 TO 5 Last administered on 08/20/17 01:02; Start 08/19/17 at 14:30 Acetaminophen/ Hydrocodone Bitart ([place] 7.5-325 Mg) 1 tab Q4H PRN PO PAIN SCALE 6 TO 10 Last administered on 08/20/17 18:11; Start 08/19/17 at 14:30 Albuterol Sulfate (Albuterol Neb) 2.5 mg Q2HR NEB PRN INH SOB/WHEEZING; Start 08/19/17 at 14:30 Albuterol/ Ipratropium (Duoneb Neb) 1 ampule Q6HR WHILE AWAKE NEB NEB Last administered on 08/22/17 08:41; Start 08/20/17 at 14:00 Bisacodyl (Dulcolax Supp) 10 mg DAILY PRN RECTAL SEVERE CONSITIPATION; Start 08/19/17 at 14:15 Ceftriaxone Sodium 1000 mg/ Sodium Chloride 100 ml @ 200 mls/hr Q24H IV Last administered on 08/21/17 12:10; Start 08/20/17 at 13:00; Stop 08/22/17 at 07:53 ; Status DC Chlorhexidine Gluconate (Chlorhexidine 2% Cloth) 3 pack UNSCH PRN TOP HYGIENIC CARE; Start 08/19/17 at 14:30 Dextrose (D50w (Vial) Inj) 50 ml UNSCH PRN IV PUSH HYPOGLYCEMIA - SEE COMMENTS ; Start 08/20/17 at 03:30 Dextrose/Sodium Chloride 1,000 ml @ 125 mls/hr Q8H IV Last administered on 02:41; Start 08/19/17 at 22:00; Stop 08/20/17 at 12:00; Status DC Enoxaparin Sodium (Lovenox Inj) 40 mg Q24H SQ Last administered on 08/20/17 15 :30; Start 08/19/17 at 15:00 Glucagon (Glucagon Inj) 1 mg UNSCH PRN OTHER HYPOGLYCEMIA-SEE COMMENTS; Start 08/20/17 at 03:30 Hydromorphone HCl (Dilaudid Pf Inj) 1 mg Q3H PRN IV PUSH BREAKTHROUGH PAIN; Start 08/19/17 at 14:30 Insulin Aspart (NovoLOG SUPPLEMENTAL SCALE) 1 ACHS SLIDING SCALE SQ Last administered on 08/22/17 08:10; Start 08/20/17 at 08:00 Insulin Detemir (Levemir Inj) 15 units BID SQ Last administered on 08/22/17 08 :10; Start 08/22/17 at 09:00 Insulin Human Regular (NovoLIN R INJ) 5 units ONCE ONCE IV PUSH Last administered on 08/19/17 13:11; Start 08/19/17 at 13:00; Stop 08/19/17 at 13:01 ; Status DC Insulin Human Regular 100 units/ Sodium Chloride 100 ml @ 4.5 mls/hr TITRATE PRN IV Blood Sugar Management Last administered on 08/19/17 16:31; Start at 13:15; Stop 08/19/17 at 21:55; Status DC Lactulose (Lactulose Liq) 30 ml DAILY PRN PO SEVERE CONSITIPATION; Start at 14:15 Lisinopril (Prinivil) 5 mg DAILY PO Last administered on 08/22/17 08:09; Start 08/20/17 at 09:00 Magnesium Hydroxide (Milk Of Mayco Liq) 30 ml Q12H PRN PO Mild constipation ; Start 08/19/17 at 14:15 Magnesium Oxide (Mag-Ox) 800 mg UNSCH PRN PO For Magnesium 1.2 - 1.6 mg/dL; Start 08/20/17 at 02:30; Stop 08/21/17 at 08:34; Status DC Magnesium Sulfate 2 gm/Sodium Chloride 100 ml @ 50 mls/hr UNSCH PRN IV For Magnesium 1.2 - 1.6 mg/dL; Start 08/20/17 at 02:30; Stop 08/21/17 at 08:34; Status DC Magnesium Sulfate 4 gm/Sodium Chloride 100 ml @ 50 mls/hr UNSCH PRN IV For Magnesium 0.9 - 1.1 mg/dL; Start 08/20/17 at 02:30; Stop 08/21/17 at 08:34; Status DC Miscellaneous Information 1 HS T-DERMAL Last administered on 08/21/17 21:42; Start 08/21/17 at 21:00 Naloxone HCl (Narcan Inj) 0.4 mg UNSCH PRN IV PUSH SEE LABEL COMMENTS; Start 08/19/17 at 14:30 Nicotine (Habitrol 14 Mg Patch.24 Hr) 1 patch DAILY T-DERMAL ; Start 08/21/17 at 11:45 Nitrofurantoin Macrocrystals (Macrobid) 100 mg BID PO Last administered on 08/22 08:49; Start 08/22/17 at 09:00 Ondansetron HCl (Zofran Inj) 4 mg Q6H PRN IVP NAUSEA OR VOMITING; Start at 14:15 Potassium Phosphate (K-Phos) 2,000 mg UNSCH PRN PO/TUBE SEE LABEL COMMENTS; Start 08/20/17 at 02:30; Stop 08/21/17 at 08:34; Status DC Potassium Phosphate 30 mmol/ Sodium Chloride 260 ml @ 42 mls/hr UNSCH PRN IV SEE LABEL COMMENTS; Start 08/20/17 at 02:30; Stop 08/21/17 at 08:34; Status DC Potassium Bicarb/ Potassium Chloride (K-Lyte Cl Eff) 50 meq UNSCH PRN PO For Potassium 3.3 - 3.5 mEq/L; Start 08/20/17 at 02:30; Stop 08/21/17 at 08:34; Status DC Potassium Chloride 100 ml @ 50 mls/hr Q2H PRN IV For Potassium 3.3 - 3.5 mEq/L ; Start 08/20/17 at 02:30; Stop 08/21/17 at 08:34; Status DC Senna/Docusate Sodium (Taylor-Colace) 1 tab BID PO Last administered on 08:09; Start 08/19/17 at 21:00 Sennosides (Senokot) 17.2 mg Q12H PRN PO Moderate constipation; Start 08/19/17 at 14:15 Sodium Chloride (NS Flush) 2 ml BID IV FLUSH Last administered on 08/21/17 20: 24; Start 08/19/17 at 21:00 Sodium Phosphate 30 mmol/Sodium Chloride 250 ml @ 42 mls/hr UNSCH PRN IV For Phosphorus < 2.5 mg/dL Last administered on 08/20/17 03:22; Start 08/20/17 at 02:30; Stop 08/21/17 at 08:34; Status DC (Martina Kerns MD R2) Urinary Catheter: No (Martina Kerns MD R2) Vascular Central Line Catheter: No (Martina Kerns MD R2) A/P Assessment and Plan Ms. Choudhary is a 57-year-old AF with a past medical history of uncontrolled DM and hyperthyroidism presenting with severe right flank pain. She was admitted for pyelonephritis and symptomatic hyperglycemia. Discharge Planning Discharged home 08/22/17. Patient will need to continue long-acting and supplemental insulin in addition to PO antibiotics for pyelonephritis upon discharge. (Martina Kerns MD R2) Attending Attestation Patient seen and examined. Case reviewed and discussed with the resident team. Agree with plan of care as discussed with me and documented in the resident note. (Tricia Rhodes MD) Problem List: (1) Diabetes mellitus ICD Codes: E11.9 - Type 2 diabetes mellitus without complications Status: Chronic Plan: Patient admitted to the ED with glucose of 550. Blood sugar has not been well controlled at home. A1c 14.5 this hospital stay. Patient does not have a PCP. Anion gap closed at 15 on admission, no DKA. However, Beta hydroxybutyrate is 5.16 on admission, now wnl. Hospital Course. * Glucose corrected quickly to low 200s. On 08/20 blood glucose increased to 396 and Gap remained closed at 10. Beta-hydroxybutrate reduced from 5.16 --> 0.78. * Was given IVF aggressively initially, starting with NS @ 250cc/hr, transitioning to d5NS when glucose decreased * Potassium monitored and remained wnl * Phosphorus low at 2.1, rechecked and wnl. Likely related to poor nutrition. * On 08/20 initiated 0.5 units / kg insulin divided into long-acting (Levemir 5 units BID + mealtime Supplemental NovoLOG. * On 08/21 Levemir increased to 10U BID given significant supplemental Novolog needs on 08/20. * On 08/22 Levermir increased to 15U BID given 22U Novolog supplementation on 08/21. This is discharge dosing. Patient needs to check blood sugar fasting in AM, AC, HS and as needed until steady diet and insulin regimen attained in the outpatient setting. (2) Pyelonephritis ICD Codes: N12 - Tubulo-interstitial nephritis, not specified as acute or chronic Status: Acute Plan: Symptoms improved significantly Urine culture +Ecoli, pansensitive Was on Rocephin 1 g IV q24hr 08/19-08/21 Transition to Macrobid 100 mg every 12 for 4 more days PCP follow-up and repeat UA given diabetes makes this a complicated UTI Hospital Course: * Pt on admission experiencing dysuria, urinary frequency, urinary urgency, incontinence, and right flank pain. * UA shows moderate leukocyte esterase, WBCs, bacteria. * CT abdomen/pelvis shows no evidence of hydronephrosis or obstruction. No definite kidney stones. There is a tiny vascular calcification associated with the left kidney. * Urine culture showing E coli, pansensitive * Rocephin 08/19-08/21 * Blood cultures showing no growth (3) Hyponatremia ICD Codes: E87.1 - Hypo-osmolality and hyponatremia Status: Resolved Plan: Corrected: Sodium correction for hyperglycemia is 138-140. Continue to monitor and fluid restrict PRN (4) Hyperkalemia ICD Codes: E87.5 - Hyperkalemia Status: Resolved Plan: Peaked T waves on EKG - resolved. (5) Hyperthyroidism ICD Codes: E05.90 - Thyrotoxicosis, unspecified without thyrotoxic crisis or storm Status: Chronic Plan: Patient currently untreated for hyperthyroidism. * TSH low at 0.125 * T3 and T4= 0.99 and 0.93 respectively. * Consider thyroid ultrasound as outpt (6) Tobacco abuse ICD Codes: Z72.0 - Tobacco use Status: Chronic Plan: Chronic 1/2PPD smoker. Cough suggestive of COPD * Duonebs q6hr, Albuterol q2hr PRN * Nicotine patch offered but pt reports headaches with this * Counseled on [place] Tobacco quitline resources, given handout (7) FEN Status: Acute Plan: Fluids: Tolerating PO. Electrolytes: Monitor and replete as needed Nutrition: Diabetic Diet 1800kcal DVT Prophylaxis: Early ambulation. Lovenox 40mg subQ q24hr. GI Prophylaxis: None SDW Dr. Tricia Rhodes (Martina Kerns MD R2) Martina Kerns MD R2 Aug 22, 2017 10:28 Tricia Rhodes MD Aug 22, 2017 12:15
--- NOTE | 2017-08-22 10:29 | HHI.DS ---
Discharge Summary Admission Date Aug 19, 2017 at 13:22 Discharge Date: Aug 22, 2017 Admitting Diagnosis hyperglycemia. Pyelonephritis. Hyponatremia. Hypokalemia (1) Diabetes mellitus Plan: Patient admitted to the ED with glucose of 550. Blood sugar has not been well controlled at home. A1c 14.5 this hospital stay. Patient does not have a PCP. Anion gap closed at 15 on admission, no DKA. However, Beta hydroxybutyrate is 5.16 on admission, now wnl. Hospital Course. * Glucose corrected quickly to low 200s. On 08/20 blood glucose increased to 396 and Gap remained closed at 10. Beta-hydroxybutrate reduced from 5.16 --> 0.78. * Was given IVF aggressively initially, starting with NS @ 250cc/hr, transitioning to d5NS when glucose decreased * Potassium monitored and remained wnl * Phosphorus low at 2.1, rechecked and wnl. Likely related to poor nutrition. * On 08/20 initiated 0.5 units / kg insulin divided into long-acting (Levemir 5 units BID + mealtime Supplemental NovoLOG. * On 08/21 Levemir increased to 10U BID given significant supplemental Novolog needs on 08/20. * On 08/22 Levermir increased to 15U BID given 22U Novolog supplementation on 08/21. This is discharge dosing. Patient needs to check blood sugar fasting in AM, AC, HS and as needed until steady diet and insulin regimen attained in the outpatient setting. ICD Codes: E11.9 - Type 2 diabetes mellitus without complications Status: Chronic (2) Pyelonephritis Plan: Symptoms improved significantly Urine culture +Ecoli, pansensitive Was on Rocephin 1 g IV q24hr 08/19-08/21 Transition to Macrobid 100 mg every 12 for 4 more days PCP follow-up and repeat UA given diabetes makes this a complicated UTI Hospital Course: * Pt on admission experiencing dysuria, urinary frequency, urinary urgency, incontinence, and right flank pain. * UA shows moderate leukocyte esterase, WBCs, bacteria. * CT abdomen/pelvis shows no evidence of hydronephrosis or obstruction. No definite kidney stones. There is a tiny vascular calcification associated with the left kidney. * Urine culture showing E coli, pansensitive * Rocephin 08/19-08/21 * Blood cultures showing no growth ICD Codes: N12 - Tubulo-interstitial nephritis, not specified as acute or chronic Status: Acute (3) Hyponatremia Plan: Corrected: Sodium correction for hyperglycemia is 138-140. Continue to monitor and fluid restrict PRN ICD Codes: E87.1 - Hypo-osmolality and hyponatremia Status: Resolved (4) Hyperkalemia Plan: Peaked T waves on EKG - resolved. ICD Codes: E87.5 - Hyperkalemia Status: Resolved (5) Hyperthyroidism Plan: Patient currently untreated for hyperthyroidism. * TSH low at 0.125 * T3 and T4= 0.99 and 0.93 respectively. * Consider thyroid ultrasound as outpt ICD Codes: E05.90 - Thyrotoxicosis, unspecified without thyrotoxic crisis or storm Status: Chronic (6) Tobacco abuse Plan: Chronic 1/2PPD smoker. Cough suggestive of COPD * Duonebs q6hr, Albuterol q2hr PRN * Nicotine patch offered but pt reports headaches with this * Counseled on [place] Tobacco quitline resources, given handout ICD Codes: Z72.0 - Tobacco use Status: Chronic (7) FEN Plan: Fluids: Tolerating PO. Electrolytes: Monitor and replete as needed Nutrition: Diabetic Diet 1800kcal DVT Prophylaxis: Early ambulation. Lovenox 40mg subQ q24hr. GI Prophylaxis: None SDW Dr. Tricia Rhodes Status: Acute Brief History Mrs. Choudhary is a 57yo female with a past medical history of diabetes and hypothyroidism presenting with right flank pain. She states that she's experienced a lot of pain in her right side that started a few days ago. She has been urinating a lot, but has been drinking a lot of water for a few months. She is having dysuria and urinary urgency . She has experienced incontinence last night and few days ago. Had to put a bucket by the bed. Describes the pain as sensitive on the skin, superficial, no radiation, worse with urination and movement, better with rest and sitting still. Tried ibuprofen but didn't help. Has a lot of congestion and cough from CHF when "fluid builds up." Cough is productive of white sputum. No blood. Feels tired. Regular human insulin at home that she gets OTC. Uses a sliding scale at home. Has been needing 5 units once a day. Checks sugar once a day upon waking. Her sugars usually run in the 400s to 500s. States that she watches what she eats. Unsure of type of DM, but has only used insulin since being diagnosed. Significant weight loss of 40 lbs in 6mths. CBC/BMP: 08/21/17 0745 08/22/17 0503 Significant Findings Laboratory Tests Test 08/19/17 11:00 08/19/17 11:10 08/19/17 13:25 08/19/17 17:30 White Blood Count 16.4 TH/MM3 (4.0-11.0) Neutrophils (%) (Auto) 89.9 % (16.0-70.0) Lymphocytes (%) (Auto) 3.8 % (9.0-44.0) Neutrophils # (Auto) 14.8 TH/MM3 (1.8-7.7) Lymphocytes # (Auto) 0.6 TH/MM3 (1.0-4.8) Monocytes # (Auto) 1.0 TH/MM3 (0-0.9) Blood Urea Nitrogen 30 MG/DL (7-18) Creatinine 1.37 MG/DL (0.50-1.00) Random Glucose 550 MG/DL (74-106) Total Protein 8.5 GM/DL (6.4-8.2) Albumin 2.9 GM/DL (3.4-5.0) Alkaline Phosphatase 181 U/L (45-117) Aspartate Amino Transf (AST/SGOT) 51 U/L (15-37) Total Bilirubin 1.5 MG/DL (0.2-1.0) Sodium Level 121 MEQ/L (136-145) Potassium Level 5.9 MEQ/L (3.5-5.1) Chloride Level 85 MEQ/L (98-107) Estimat Glomerular Filtration Rate 48 ML/MIN (>89) B-Hydroxybutyrate 5.16 MMOL/L (0.00-0.39) Urine Turbidity HAZY (CLEAR) Urine Protein 30 mg/dL (NEG-TRACE) Urine Glucose (UA) 1000 mg/dL (NEG) Urine Ketones 10 mg/dL (NEG) Urine Occult Blood MOD (NEG) Urine Leukocyte Esterase MOD (NEG) Urine RBC 7 /hpf (0-3) Urine WBC 35 /hpf (0-5) Urine WBC Clumps RARE (NONE) Urine Bacteria MANY /hpf (NONE) Urine Mucus FEW /lpf (OCC) Venous Blood pH 7.28 (7.360-7.400) Venous Blood Partial Pressure CO2 54 mmHg (44-48) Venous Blood Partial Pressure O2 15 mmHg (35-40) Venous Blood Oxygen Saturation 7 % (70-76) Venous Blood Oxygen Content 1.5 Vol % (9.0-17.0) Test 08/19/17 19:56 08/19/17 21:20 08/20/17 00:30 08/20/17 03:38 Blood Urea Nitrogen 24 MG/DL (7-18) 21 MG/DL (7-18) Random Glucose 223 MG/DL (74-106) 227 MG/DL (74-106) 396 MG/DL (74-106) Phosphorus Level 1.7 MG/DL (2.5-4.9) Sodium Level 133 MEQ/L (136-145) 133 MEQ/L (136-145) Carbon Dioxide Level 20.1 MEQ/L (21.0-32.0) Estimat Glomerular Filtration Rate 79 ML/MIN (>89) Hemoglobin A1c 14.5 % (4.3-6.0) Thyroid Stimulating Hormone 3rd Gen 0.125 uIU/ML (0.358-3.740) B-Hydroxybutyrate 0.78 MMOL/L (0.00-0.39) Red Blood Count 3.86 MIL/MM3 (4.00-5.30) Platelet Count 116 TH/MM3 (150-450) Neutrophils (%) (Auto) 89.7 % (16.0-70.0) Lymphocytes (%) (Auto) 3.0 % (9.0-44.0) Neutrophils # (Auto) 9.7 TH/MM3 (1.8-7.7) Lymphocytes # (Auto) 0.3 TH/MM3 (1.0-4.8) Albumin 2.2 GM/DL (3.4-5.0) Calcium Level 8.2 MG/DL (8.5-10.1) Alkaline Phosphatase 126 U/L (45-117) Free Triiodothyronine (T3) pg/dL 0.99 PG/ML (2.18-3.98) Test 08/20/17 14:00 08/21/17 07:45 08/22/17 05:03 Phosphorus Level 2.1 MG/DL (2.5-4.9) Red Blood Count 3.94 MIL/MM3 (4.00-5.30) Platelet Count 112 TH/MM3 (150-450) Neutrophils (%) (Auto) 75.3 % (16.0-70.0) Monocytes (%) (Auto) 12.4 % (0.0-8.0) Lymphocytes # (Auto) 0.9 TH/MM3 (1.0-4.8) Monocytes # (Auto) 1.0 TH/MM3 (0-0.9) Creatinine 0.46 MG/DL (0.50-1.00) 0.45 MG/DL (0.50-1.00) Random Glucose 161 MG/DL (74-106) Albumin 2.1 GM/DL (3.4-5.0) Alkaline Phosphatase 144 U/L (45-117) Sodium Level 131 MEQ/L (136-145) Potassium Level 3.3 MEQ/L (3.5-5.1) Imaging Last Impressions Chest X-Ray 08/19/17 1414 Signed Impressions: Service Date/Time: August 14:23 - CONCLUSION: No acute disease. No significant change has occurred. Vinny Burch MD Abdomen/Pelvis CT 08/19/17 1051 Signed Impressions: Service Date/Time: August 11:44 - CONCLUSION: 1. No evidence of hydronephrosis or obstruction. No definite kidney stones. There is a tiny vascular calcification associated with the left kidney. 2. Multiple calcified uterine fibroids. Vinny Burch MD PE at Discharge GENERAL: This is a thin, malnourished female patient, in no apparent distress. Breakfast tray at bedside with 50% completed meal. She is in good spirits this morning. SKIN: No rashes, ecchymoses or lesions. Cool and dry. HEAD: Atraumatic. Normocephalic. EYES: Pupils equal round and reactive. Extraocular motions intact. No scleral icterus. No injection or drainage. ENT: Nose without bleeding or purulent drainage. Throat without erythema, tonsillar hypertrophy or exudate. Airway patent. Enlarged thyroid, not nodular. NECK: Trachea midline. No JVD or lymphadenopathy. Supple, nontender. CARDIOVASCULAR: Regular rate and rhythm without murmurs, gallops, or rubs. RESPIRATORY: Clear to auscultation. Breath sounds equal bilaterally. No wheezes , rales, or rhonchi. GASTROINTESTINAL: Abdomen soft, non-tender, nondistended. No hepato-splenomegaly , or palpable masses. No guarding. MUSCULOSKELETAL: Extremities without clubbing, cyanosis, or edema. No joint tenderness, effusion, or edema noted. No calf tenderness. NEUROLOGICAL: Awake and alert. Motor and sensory grossly within normal limits. Normal speech. Hospital Course Ms. Choudhary is a 57-year-old AF with a past medical history of uncontrolled DM and hyperthyroidism presenting with severe right flank pain. She was admitted for pyelonephritis and symptomatic hyperglycemia. Management as noted above for both conditions. On the date of discharge, patient is eager to go home and symptoms have improved. She is discharged with note that she has significantly uncontrolled diabetes with A1c >14 and is counseled on the importance of PCP establishment. She has Medicare and plans to establish with a local PCP MARYANNE. She is noted to need follow-up for pyelonephritis and nose to continue her Macrobid until completion. She is also noted to have reported chronic hyperthyroidism with low TSH this hospital stay on 08/19 (0.125 uIU/ML). No evidence of thyrotoxicosis or thyroid storm, but is mildly tachycardic during some points of hospitalization. She will require thyroid ultrasound or other workup as an outpatient. This raises suspicion the patient has possible DM1 and could benefit from autoimmune workup, insulin antibody studies, etc. She is discharged in stable condition. Pt Condition on Discharge: Stable Discharge Disposition: Discharge Home Discharge Instructions DIET: Follow Instructions for: Diabetic Diet Additional Diet Instructions: Supplement your diet with Glucerna or Ensure Activities you can perform: Regular-No Restrictions Follow up Referrals: PCP Follow-up - 1 Week New Medications: Blood Glucose Monitoring W/Device (Glucocom Blood Glucose Mo W/Device) 1 Kit Kit KIT .ROUTE DIRECTED for Blood Sugar Management, #1 Glucocom Test Strips (Glucocom Test Strips) 1 Eileen Eileen EA .ROUTE DIRECTED for Blood Sugar Management, #1 Insulin Aspart Inj (Novolog Inj) 1,000 Unit/10 Ml Vial 1-9 UNITS SQ ACHS for Blood Sugar Management, #10 ML 0 Refills Max dose at bedtime:(2)units; sugars less than 70,(0)units; sugars 150-199,(1) unit; sugars 200-249,(3) units; sugars 250-299,(5) units; sugars 300-349,(7) units; sugars greater than 349,(9) units Insulin Detemir Inj (Levemir Inj) 1,000 unit/ 10 ML Vial 15 UNITS SQ BIDAC for Blood Sugar Management, #1 VIAL 0 Refills Do not mix with any other Insulin. Inject 15 units before breakfast, 15 units before dinner. Insulin Syringe/U-100/31G X 5/16" 1 ml (Insulin Syringe/U-100/31G X 5/16" 1 ml) 31 Gauge X 5/16" Mis EA .ROUTE DIRECTED for Blood Sugar Management, #1 0 Refills Lancets (Lancets) 1 Mis Mis EA .ROUTE DIRECTED for Blood Sugar Management, #1 0 Refills Parenteral Therapy Supplies (Sharpsafety Sharps Contai) 1 Mis Mis EA .ROUTE DIRECTED, #1 0 Refills Nitrofurantoin Monohydrate Macrocrystals (Nitrofurantoin Monohydrate Macrocrystals) 100 Mg Cap 100 MG PO BID, #8 CAP Continued Medications: Albuterol 18 GM Inh (Ventolin Hfa 18 GM Inh) 90 Mcg/Act Aer 2 PUFF INH Q4-6H PRN for SHORTNESS OF BREATH, #1 INHALER 0 Refills (This prescription has been renewed) Lisinopril (Lisinopril) 5 Mg Tab 5 MG PO DAILY for Blood Pressure Management, #30 TAB 0 Refills (This prescription has been renewed) Discontinued Medications: Insulin Regular (Human) (Novolin R Relion) 100 Unit/Ml Inj Martina Kerns MD R2 Aug 22, 2017 10:29
== END 2017-08-22 12:47 | disposition home or self-care (01) | DRG 690 ==
LOC: NEPD 10:34 → NEDA 13:22 → HIME 17:00 → N07A 08-20 14:23
PROVIDERS: ADMIT Family Medicine; ATTEND Family Medicine
DX: N13.6 Pyonephrosis (principal); I11.0 Hypertensive heart disease with heart failure; E46 Unspecified protein-calorie malnutrition; E11.65 Type 2 diabetes mellitus with hyperglycemia; I50.9 Heart failure, unspecified; E87.1 Hypo-osmolality and hyponatremia; I48.91 Unspecified atrial fibrillation; E87.5 Hyperkalemia; Z79.82 Long term (current) use of aspirin; M06.9 Rheumatoid arthritis, unspecified; K21.9 Gastro-esophageal reflux disease without esophagitis; E78.00 Pure hypercholesterolemia, unspecified; J44.9 Chronic obstructive pulmonary disease, unspecified; E05.00 Thyrotoxicosis with diffuse goiter without thyrotoxic crisis or storm; I25.10 Atherosclerotic heart disease of native coronary artery without angina pectoris; I25.2 Old myocardial infarction; F17.210 Nicotine dependence, cigarettes, uncomplicated; D25.9 Leiomyoma of uterus, unspecified; Z79.4 Long term (current) use of insulin; R39.15 Urgency of urination; R30.0 Dysuria; R32 Unspecified urinary incontinence; F41.9 Anxiety disorder, unspecified; F32.9 Major depressive disorder, single episode, unspecified; Z82.49 Family history of ischemic heart disease and other diseases of the circulatory system; Z82.5 Family history of asthma and other chronic lower respiratory diseases; F12.90 Cannabis use, unspecified, uncomplicated; B96.20 Unspecified Escherichia coli [E. coli] as the cause of diseases classified elsewhere; E87.6 Hypokalemia
CPT/HCPCS: 71010; 74176; 80048; 80053; 81001; 82010; 82805; 82948; 83036; 83605; 83735; 83880; 84100; 84439; 84443; 84481; 85025; 87040; 87077; 87086; 87186; 87641; 93005; 94640; 94664; 96361; 96374; 96375; J0696; J1650; J1815; J1817; J7030; J7050

== ENCOUNTER → 2017-11-11 | Outpatient (CLI) | payer MEDICARE, OTHER ==
[~2017-11-11] MED LIST changes: +BIOM30MI; +GLUCKIT15; +GLUCTES12; +INSU1MIS15; -INSUINJ3; +LANCETS1 MI1; +LEVEMIR SQ; +NITR100C4 PO; +NOVOLOGP2 SQ; +TRAZ50TA12 PO; +[UNRECOGNIZED DRUG - CODE]
[2017-11-11 13:14] LABS: BASOPHIL # 0.1 TH/MM3 (0-0.2); EOSINOPHIL # 0.1 TH/MM3 (0-0.4); EOSINOPHIL % 1.5 % (0.0-4.0); HEMATOCRIT 41.6 % (35.0-46.0); HEMOGLOBIN 14.7 GM/DL (11.6-15.3); LYMPH % 52.8 % (9.0-44.0); LYMPHOCYTE # 2.8 TH/MM3 (1.0-4.8); MEAN CELL VOLUME 91.1 FL (80.0-100.0); MEAN CORPUSCULAR HEMOGLOBIN 32.2 PG (27.0-34.0); MEAN CORPUSCULAR HGB CONC 35.3 % (32.0-36.0); MONO % 7.6 % (0.0-8.0); MONOCYTE # 0.4 TH/MM3 (0-0.9); NEUT % 37.1 % (16.0-70.0); PLATELET COUNT 236 TH/MM3 (150-450); RED BLOOD COUNT 4.57 MIL/MM3 (4.00-5.30); RED CELL DISTRIBUTION WIDTH 14.1 % (11.6-17.2); WHITE BLOOD COUNT 5.3 TH/MM3 (4.0-11.0)
[2017-11-11 13:39] LABS: ALBUMIN 3.7 GM/DL (3.4-5.0); ALT (GPT) 23 U/L (10-53); AST (GOT) 16 U/L (15-37); BICARBONATE 29.7 MEQ/L (21.0-32.0); BLOOD UREA NITROGEN 11 MG/DL (7-18); CALCIUM 8.7 MG/DL (8.5-10.1); CHLORIDE 101 MEQ/L (98-107); CREATININE 0.65 MG/DL (0.50-1.00); GLOMERULAR FILTRATION RATE 114 ML/MIN (>89); GLUCOSE,FASTING 104 MG/DL (74-99); SODIUM (NA) 136 MEQ/L (136-145)
[2017-11-11 13:49] LABS: ALKALINE PHOSPHATASE 105 U/L (45-117); FREE T4 1.05 NG/DL (0.76-1.46); TOTAL BILIRUBIN ADULT 0.5 MG/DL (0.2-1.0); TOTAL PROTEIN 8.2 GM/DL (6.4-8.2)
== END ==
LOC: CLAB 12:49
PROVIDERS: ATTEND Family Medicine
DX: E11.8 Type 2 diabetes mellitus with unspecified complications (principal); E05.90 Thyrotoxicosis, unspecified without thyrotoxic crisis or storm
CPT/HCPCS: 36415; 80053; 83036; 84439; 84443; 85025

== ENCOUNTER → 2018-01-07 | Outpatient (CLI) | payer MEDICARE, OTHER ==
[2018-01-07 12:02] LABS: ALT (GPT) 24 U/L (10-53)
[2018-01-07 12:12] LABS: ALBUMIN 3.5 GM/DL (3.4-5.0); ALKALINE PHOSPHATASE 117 U/L (45-117); AST (GOT) 21 U/L (15-37); BICARBONATE 29.1 MEQ/L (21.0-32.0); BLOOD UREA NITROGEN 13 MG/DL (7-18); CALCIUM 9.1 MG/DL (8.5-10.1); CHLORIDE 100 MEQ/L (98-107); CREATININE 1.02 MG/DL (0.50-1.00); FREE T4 0.93 NG/DL (0.76-1.46); GLOMERULAR FILTRATION RATE 68 ML/MIN (>89); GLUCOSE,FASTING 207 MG/DL (74-99); SODIUM (NA) 137 MEQ/L (136-145); TOTAL BILIRUBIN ADULT 0.6 MG/DL (0.2-1.0); TOTAL PROTEIN 7.9 GM/DL (6.4-8.2)
[2018-01-07 19:34] LABS: HEMOGLOBIN A1C 8.2 % (4.3-6.0)
== END ==
LOC: CLAB 11:13
DX: E05.90 Thyrotoxicosis, unspecified without thyrotoxic crisis or storm (principal); E11.65 Type 2 diabetes mellitus with hyperglycemia
CPT/HCPCS: 36415; 80053; 83036; 84439; 84443